=== PATIENT | male | born 1940 | race Caucasian/White ===

== ENCOUNTER 2020-03-18 12:33 | Emergency (ER) | payer OTHER ==
[2020-03-18 13:33] LABS: Absolute Lymphocytes (CBC) 0.6 K/uL (0.7-4.9); Basophils % 0.1 % (0-1.3); Hematocrit 46.8 % (39.6-49.0); Lymphocytes % 2.8 % (15.3-44.8); MPV 9.5 fL (7.6-11.3); RBC Red Blood Cell Count 5.12 M/uL (4.33-5.43)
[2020-03-18 13:37] LABS: Protime INR 1.35
--- NOTE | 2020-03-18 13:48 | RAD REPORT ---
EXAM DESCRIPTION: CT - Abdomen Pelvis Wo Contrast - 03/18/2020 1:29 pm CLINICAL HISTORY: ABD PAIN Shortness of breath COMPARISON: No comparisons TECHNIQUE: Axial [address] imaging of the abdomen and pelvis was performed without IV contrast. No IV contrast was given because of allergy, abnormal renal function, patient refusal or physician re quest. No oral contrast given. All CT scans are performed using dose optimization technique as appropriate and may include automated exposure control or mA/KV adjustment according to patient size. FINDINGS: A 7 millimeter nodule is present in the posterior gutter on the right. There is additional parenchymal stranding in this region. This may be part of scarring. Recommendation would be for foll ow-up in 6-12 months if no prior imaging is available. This follow-up regimen may be shortened if the patient has additional pulmonary nodules outside of today's [id number]. Follow-up chest outpatien t CT imaging could be performed as risk factors warrant. No pleural effusion. Cardiomegaly is present without pericardial effusion. Liver has a slightly nodular contour. No focal liver lesions seen on noncontrast imaging. Gallbladder is normal size. Respiratory motion degradation blurs of the garcia. Gallstones can be occult. Patient has a biliary stent in place. No pancreatic mass or peripancreatic stranding. No spleen abnormality identified. No left-sided hydronephrosis or mass. No obstructing or nonobstructing calculi. Left adrenal gland an d right adrenal gland are unremarkable. Right kidney is absent. Isodense renal masses and pyelonephr itis cannot be excluded in the absence of IV contrast. The urinary bladder is without significant fin ding. Fluid-filled stomach shows no wall thickening or mass. No acute large or small bowel finding. No susp icion for appendicitis. No free air, free fluid or inflammatory stranding. No mass or bulky lymphade nopathy. Patient has moderately large bilateral fat only inguinal hernias. Advanced disc and bone degenerative changes are present. No acute findings seen. IMPRESSION: No obstruction, free air or surgically emergent finding identified. No acute GI findings seen. Liver has a slightly nodular contour and hepatic parenchymal disease is not excluded. There are no fo yolanda liver lesions on noncontrast imaging. Absent right kidney. Cardiomegaly. A 7 millimeter pulmonary nodule posterior gutter on the right may be part of scarring but needs ongoi ng monitoring. Recommendation is 6-12 month follow-up outpatient CT study. This interval may need to be shortened if the patient has additional pulmonary nodules that fall outside of the field of view o f this examination. Full assessment is limited is the absence of IV contrast.
[2020-03-18 14:06] LABS: Albumin 2.9 g/dL (3.4-5.0); Bilirubin Direct 8.5 mg/dL (0-0.2); Magnesium 1.9 mg/dL (1.8-2.4); Potassium 4.8 mmol/L (3.5-5.1); Protein, Total 7.6 g/dL (6.4-8.2); Troponin (Emerg Dept Use Only) 0.18 ng/mL (0.0-0.045)
[2020-03-18 14:07] LABS: Bilirubin Total 9.9 mg/dL (0.2-1.0)
[2020-03-18] MEDS ORDERED: CEFTRIAXONE/SWI 1gm 1 GM/10 ML SYR ONE (14:33)
[2020-03-18] MEDS ORDERED: AZITHROMYCIN IV 500 MG in NA CHLORIDE 0.9% 250 ML IVPB ONE (15:00)
[2020-03-18 15:03] LABS: Blood Morphology Comment NOT SEEN (NOT SEEN); Platelet Estimate ADEQ; White Blood Cell Scan DIFF (OK)
--- NOTE | 2020-03-18 15:41 | RAD REPORT ---
EXAM DESCRIPTION: RAD - Chest Single View - 03/18/2020 3:21 pm CLINICAL HISTORY: COUGH, shortness of breath COMPARISON: None TECHNIQUE: AP portable chest image was obtained 03/18/2020 3:21 pm . FINDINGS: Lung volumes are low. Left suprahilar markings are mildly prominent. No dense consolidatio n seen. Cardiomegaly is present. Vasculature is mildly prominent. Sternotomy wires are in place. No m easurable pleural effusion and no pneumothorax. No acute bony abnormality seen. No acute aortic findi ngs suspected. IMPRESSION: Lung parenchymal assessment is significantly limited due to low lung volumes, cardiomega ly and body habitus. No significant failure or volume overload. Left suprahilar markings are mildly prominent. Pneumonia is doubtful but follow-up can be obtained if the patient remains symptomatic.
--- NOTE | 2020-03-18 15:51 | RAD REPORT ---
EXAM DESCRIPTION: US - Abdomen Exam Limited - 03/18/2020 2:56 pm CLINICAL HISTORY: ABD PAIN COMPARISON: Abdomen Pelvis Wo Contrast dated 03/18/2020 FINDINGS: Gallbladder is contracted which significantly limited visualization of the gallbladder lum en. The contracted state and body habitus affects also limited the ability to assess for any true gal lbladder wall thickening. No pericholecystic fluid seen. No common duct stone or biliary tree dilatation identified. IMPRESSION: Gallbladder was too contracted to allow all accurate assessment for stones or sludge. No biliary tree dilatation identifiable.
--- NOTE | 2020-03-18 16:14 | EDPHYS ---
Physician Documentation [facility] Name: Fernandez Keller Age: 79 yrs Sex: Male : 1940 Arrival Date: 03/18/2020 Time: 12:38 Bed 8 Private MD: ED Physician Woo Dennis HPI: 03/18 16:04 This 79 yrs old Unknown Male presents to ER via EMS with complaints of Breathing rn Difficulty. 16:04 The patient has shortness of breath at rest. rn 16:05 Onset: The symptoms/episode began/occurred last night. Duration: The symptoms are rn continuous. The patient's shortness of breath is aggravated by exertion, supine position. Severity of symptoms: At their worst the symptoms were moderate in the emergency department the symptoms are unchanged. The patient has not experienced similar symptoms in the past. Reports sob since last night, + 2 days of fever to 102, + dry cough. Reports chest pain and abd pain with nausea. No trauma. No COVID-19 contacts that he knows of. . Historical: - Allergies: 12:30 No Known Allergies; rb1 - Home Meds: 12:30 atorvastatin 20 mg oral tab 0.5 tab once daily [Active]; glipizide 5 mg Oral tab 1 tab rb1 once daily [Active]; hydrochlorothiazide lisinopril HCTZ 12.5/Lisinopril 20 mg 1 tab daily [Active]; hydralazine 10 mg Oral tab 1 tab 3 times a day [Active]; hydrocortisone 10 mg Oral tab 2 tabs morning [Active]; levothyroxine 75 mcg tab 1 tab once daily [Active]; metoprolol succinate 50 mg oral Tb24 1 tab once daily [Active]; sildenafil citrate 10 mg 0.5 tab Take before sexual intercourse [Active]; testosterone (bulk) miscellaneous [Active]; aspirin 81 mg Oral chew 1 tab once daily [Active]; multivitamin oral oral daily [Active]; - PMHx: 12:30 High Cholesterol; Hypertension; Diabetes - NIDDM; Hypothyroidism; Melanoma; rb1 - PSHx: 12:30 Bypass x 2; Knee replacement; Appendectomy; Nephrectomy; rb1 - Immunization history:: Adult Immunizations up to date. - Social history:: Smoking status: Patient/guardian denies using. - Family history:: not pertinent. - Hospitalizations: : No recent hospitalization is reported. ROS: 16:05 Constitutional: + fever Eyes: Negative for injury, pain, redness, and discharge, ENT: rn Negative for injury, pain, and discharge, Cardiovascular: Negative for chest pain, palpitations, and edema, Respiratory: Negative for wheezing, and pleuritic chest pain, Abdomen/GI: + abd pain and nausea MS/Extremity: Negative for injury and deformity, Skin: Negative for injury, rash, and discoloration, Neuro: Negative for headache, numbness, tingling, and seizure. Exam: 16:05 Constitutional: Overweight male, tachypneic, with shallow breathing Head/Face: rn Normocephalic, atraumatic. ENT: No stridor Cardiovascular: Regular rate and rhythm. No pulse deficits. Respiratory: + moderate tachypnea, diminished at bases Abdomen/GI: soft, non-tender Skin: Warm, dry MS/ Extremity: Pulses equal, no cyanosis. Neurovascular intact. Full, normal range of motion. Equal circumference. Neuro: Awake and alert, GCS 15 Vital Signs: 12:30 BP 126 / 59; Pulse 102; Resp 19; Temp 98.3(O); Pulse Ox 97% on 2 lpm NC; Weight 127.01 rb1 kg (R); Height 5 ft. 10 in. (177.80 cm) (R); Pain 8/10; 13:48 BP 115 / 58; Pulse 101; Resp 22 S; Pulse Ox 99% on 2 lpm NC; jl7 14:37 BP 116 / 82; Pulse 92; Resp 30; Pulse Ox 97% on 2 lpm NC; rb1 15:15 BP 122 / 110; Pulse 94; Resp 27; Pulse Ox 98% ; rb1 17:48 BP 119 / 55; Pulse 84; Resp 29; Pulse Ox 96% ; rb1 18:42 BP 111 / 94; Pulse 85; Resp 27; Pulse Ox 100% ; rb1 19:30 BP 109 / 91; Pulse 85; Resp 17; Pulse Ox 100% on R/A; rv 20:00 BP 92 / 78; Pulse 80; Resp 18; Pulse Ox 96% on 2 lpm NC; rv 20:30 BP 150 / 83; Pulse 87; Resp 17; Pulse Ox 96% on 2 lpm NC; rv 21:15 BP 106 / 50; Pulse 91; Resp 19; Pulse Ox 97% 2 lpm ; rv 22:30 BP 103 / 48; Pulse 84; Resp 27; Pulse Ox 95% on R/A; rv 22:45 BP 96 / 44; Pulse 83; Resp 20; Pulse Ox 100% on 30% BiPAP; rv 03/19 00:20 BP 101 / 44; Pulse 88; Resp 19; Pulse Ox 99% ; ea 00:40 BP 118 / 53; Pulse 86; Resp 17; Temp 98; Pulse Ox 97% on 2 lpm NC; rv 03/18 12:30 Body Mass Index 40.18 (127.01 kg, 177.80 cm) rb1 MDM: 03/18 12:41 Patient medically screened. rn 16:10 Differential diagnosis: CHF exacerbation, Myocardial Infarction pneumonia, Pneumothorax rn pulmonary edema, Pulmonary Embolism Sepsis. Data reviewed: vital signs, nurses notes, lab test result(s), EKG, radiologic studies, CT scan, plain films, ultrasound, and as a result, I will admit patient. Counseling: I had a detailed discussion with the patient and/or guardian regarding: the historical points, exam findings, and any diagnostic results supporting the discharge/admit diagnosis, lab results, radiology results, the need for further work-up and treatment in the hospital. Response to treatment: the patient's symptoms have mildly improved after treatment, and as a result, I will admit patient. Admission orders: after a detailed discussion of the patient's condition and case, the admit orders are written by me. 17:40 ED course: Dr. Torres consulted on patient, spoke with Dr. Montgomery, who requests overnight stocker for elevated LFTs, possible need for ERCP and endoscopic u/s, along with chance of cholangitis. Will call [facility] to initiate transfer. . 18:12 ED course: Consulted with Dr. Can, GI at [facility], agrees and will consult on rn patient when transferred. Pt improved, RR improving, on 2 L O2, sitting upright and states feels better. Stable BP. Abx administered. Awaiting callback from [facility] hospitalist service. . 03/18 12:48 Order name: Blood Culture Adult (2) rn 03/18 12:48 Order name: BMP rn 03/18 12:48 Order name: CBC with Diff rn 03/18 12:48 Order name: D-Dimer rn 03/18 12:48 Order name: Hepatic Function; Complete Time: 14: rn 03/18 12:48 Order name: Lipase; Complete Time: 14: rn 03/18 12:48 Order name: Magnesium; Complete Time: 14: rn 03/18 12:48 Order name: NT PRO-BNP; Complete Time: 14: rn 03/18 12:48 Order name: PT-INR; Complete Time: 13:56 rn 03/18 12:48 Order name: Ptt, Activated; Complete Time: 13:56 rn 03/18 12:48 Order name: Troponin (emerg Dept Use Only); Complete Time: 14: rn 03/18 12:48 Order name: Procalcitonin; Complete Time: 14: rn 03/18 12:48 Order name: Lactate; Complete Time: 14: rn 03/18 12:49 Order name: Blood Culture EDOK 03/18 12:49 Order name: Basic Metabolic Panel; Complete Time: 14: EDOK 03/18 12:49 Order name: CBC with Automated Diff; Complete Time: 15:15 EDOK 03/18 12:49 Order name: D-Dimer; Complete Time: 13:56 EDOK 03/18 13:32 Order name: CREATININE WHOLE BLOOD; Complete Time: 13:56 EDOK 03/18 13:44 Order name: CBC Smear Scan; Complete Time: 15:15 EDOK 03/18 15:03 Order name: Manual Differential; Complete Time: 15:15 EDOK 03/18 16:47 Order name: ABG Arterial Blood Gas; Complete Time: 17:38 EDOK 03/18 17:42 Order name: Lactate Sepsis 2 HR Follow-up; Complete Time: 17:56 EDOK 03/18 17:46 Order name: SARS-COV-2 RT PCR; Complete Time: 23:57 EDMS 03/18 21:08 Order name: Glucose, Ancillary Testing; Complete Time: 23:57 EDMS 03/18 22:45 Order name: Troponin (emerg Dept Use Only); Complete Time: 23:57 sg 03/18 22:49 Order name: Glucose, Ancillary Testing; Complete Time: 23:57 EDMS 03/18 12:48 Order name: EKG; Complete Time: 12:49 rn 03/18 12:48 Order name: Cardiac monitoring; Complete Time: 13:26 rn 03/18 12:48 Order name: EKG - Nurse/Tech; Complete Time: 14:19 rn 03/18 12:48 Order name: IV Saline Lock; Complete Time: 13:25 rn 03/18 12:48 Order name: Labs collected and sent; Complete Time: 13:25 rn 03/18 12:48 Order name: O2 Per Protocol; Complete Time: 13:25 rn 03/18 12:48 Order name: O2 Sat Monitoring; Complete Time: 13:25 rn 03/18 13:21 Order name: Abdomen ; Complete Time: 13:56 EDMS 03/18 14:14 Order name: Chest Single View; Complete Time: 15:55 EDMS 03/18 14:17 Order name: US Abdomen Limited; Complete Time: 15:55 rn 03/18 16:09 Order name: BIPAP rn Administered Medications: 14:50 Drug: Rocephin 1 grams Route: IV; Rate: calculated rate; Site: right forearm; rb1 15:05 Follow up: Response: No adverse reaction rb1 15:05 Follow up: Response: No adverse reaction rb1 15:05 Follow up: Response: No adverse reaction rb1 20:13 Follow up: Response: No adverse reaction; IV Status: Completed infusion rv 14:50 Drug: Zithromax 500 mg Route: IVPB; Infused Over: 1 hrs; Site: right forearm; rb1 15:05 Follow up: Response: No adverse reaction rb1 20:12 Follow up: Response: No adverse reaction; IV Status: Completed infusion rv 18:07 Drug: NS 0.9% 500 ml Route: IV; Rate: bolus; Site: right forearm; rb1 19:26 Follow up: IV Status: Completed infusion; IV Intake: 500ml rv Disposition: 03/18/20 18:36 Transfer ordered to [facility]. Diagnosis are Abnormal results of liver function studies, Pneumonia, unspecified organism, Dyspnea, unspecified, Acute kidney failure. - Reason for transfer: Higher level of care. - Accepting physician is DrKanchan. - Condition is Stable. - Problem is new. - Symptoms have improved. Signatures: Dispatcher [employer] EDMarcos Marie RN RN Kan Mcdonough PA PA jmm Nieto, Roman, MD MD rn Barber, Rebecca RN RN rb1 Ayaan Gaffney RN RN rv Corrections: (The following items were deleted from the chart) 13:21 12:49 Abdomen Pelvis W Con+CT.RAD.BRZ ordered. [facility] 14:13 12:48 Chest Single View+RAD.RAD.BRZ ordered. [facility] 17:46 12:49 CORONAVIRUS+MR.LAB.BRZ ordered. [facility] 18:35 16:12 Hospitalization Ordered by Demetrice Torres MD for Inpatient Admission. Preliminary rn diagnosis is Dyspnea, unspecified; Acute kidney failure; Abnormal results of liver function studies; Pneumonia, unspecified organism. Bed requested for Telemetry/MedSurg (Inpatient). Status is Inpatient Admission. Condition is Stable. Problem is new. Symptoms have improved. rn 23:11 23:06 Blood Transfusion Consent ordered. sg ea 23:13 23:06 PACKED RBC LEUKORED -1+BB.LAB.BRZ ordered. [facility] 23:13 23:07 ABO/RH typing ordered. [facility] 23:13 23:07 Antibody Screen ordered. [facility] 03/19 00:59 03/18 18:36 03/18/2020 18:36 Transfer ordered to [facility]. rv Diagnosis is Abnormal results of liver function studies; Pneumonia, unspecified organism; Dyspnea, unspecified; Acute kidney failure. Reason for transfer: Higher level of care. Accepting physician is . Condition is Stable. Problem is new. Symptoms have improved. rn
--- NOTE | 2020-03-18 16:14 | ER ---
Nurse's Notes [facility] Name: Fernandez Keller Age: 79 yrs Sex: Male : 1940 Arrival Date: 03/18/2020 Time: 12:38 Bed 8 Private MD: Diagnosis: Abnormal results of liver function studies;Pneumonia, unspecified organism;Dyspnea, unspecified;Acute kidney failure Presentation: 03/18 12:30 Chief complaint: EMS states: Pt. C/o of difficulty breathing. When EMS arrived the pt. rb1 was 92% RA, administered 2 L NC 97%. Also c/o abdominal pain that started last night. Was diaphoretic when EMS arrived. BP 120/80, P 110, T 98.2, BS 116. Denies being around anyone that has been sick. 12:30 Coronavirus screen: Client denies travel out of the [place] in the last 14 days. Ebola rb1 Screen: Patient denies travel to an Ebola-affected area in the 21 days before illness onset. Initial Sepsis Screen: Does the patient meet any 2 criteria? No. Patient's initial sepsis screen is negative. Risk Assessment: Do you want to hurt yourself or someone else? Patient reports no desire to harm self or others. Onset of symptoms was March 17, 2020. 12:30 Method Of Arrival: EMS: [facility] rb1 12:30 Acuity: [place] 3 rb1 03/19 00:59 Initial Sepsis Screen: Does the patient have a suspected source of infection? Yes: rv Acute abdominal pain. Triage Assessment: 03/18 12:30 General: Appears in no apparent distress. comfortable, Behavior is calm, cooperative. rb1 Pain: Complains of pain in abdomen Pain currently is 8 out of 10 on a pain scale. Pain began 1 day ago. Neuro: Level of Consciousness is awake, alert, obeys commands, Oriented to person, place, time, situation. Cardiovascular: Capillary refill < 3 seconds Patient's skin is warm and dry. Respiratory: Reports shortness of breath on exertion Airway is patent Respiratory effort is even, unlabored, Respiratory pattern is regular, symmetrical, Onset: The symptoms/episode began/occurred yesterday, the patient has mild shortness of breath Denies cough. GI: Reports diarrhea, nausea. : No signs and/or symptoms were reported regarding the genitourinary system. Historical: - Allergies: 12:30 No Known Allergies; rb1 - Home Meds: 12:30 atorvastatin 20 mg oral tab 0.5 tab once daily [Active]; glipizide 5 mg Oral tab 1 tab rb1 once daily [Active]; hydrochlorothiazide lisinopril HCTZ 12.5/Lisinopril 20 mg 1 tab daily [Active]; hydralazine 10 mg Oral tab 1 tab 3 times a day [Active]; hydrocortisone 10 mg Oral tab 2 tabs morning [Active]; levothyroxine 75 mcg tab 1 tab once daily [Active]; metoprolol succinate 50 mg oral Tb24 1 tab once daily [Active]; sildenafil citrate 10 mg 0.5 tab Take before sexual intercourse [Active]; testosterone (bulk) miscellaneous [Active]; aspirin 81 mg Oral chew 1 tab once daily [Active]; multivitamin oral oral daily [Active]; - PMHx: 12:30 High Cholesterol; Hypertension; Diabetes - NIDDM; Hypothyroidism; Melanoma; rb1 - PSHx: 12:30 Bypass x 2; Knee replacement; Appendectomy; Nephrectomy; rb1 - Immunization history:: Adult Immunizations up to date. - Social history:: Smoking status: Patient/guardian denies using. - Family history:: not pertinent. - Hospitalizations: : No recent hospitalization is reported. Screenin:30 Abuse screen: Denies threats or abuse. Nutritional screening: No deficits noted. rb1 Tuberculosis screening: No symptoms or risk factors identified. Fall Risk None identified. Assessment: 12:30 General: See triage assessment. rb1 13:29 Reassessment: Pt. in radiology. rb1 13:48 Reassessment: Patient appears in no apparent distress at this time. decreased pain 10.rb1 14:39 Reassessment: Patient appears in no apparent distress at this time. Patient and/or rb1 family updated on plan of care and expected duration. Pain level reassessed. Patient is alert, oriented x 3, equal unlabored respirations, skin warm/dry/pink. Lab is at the bedside to collect the second set of blood cultures. 15:35 Reassessment: Patient appears in no apparent distress at this time. No changes from rb1 previously documented assessment. 16:30 Reassessment: Patient appears in no apparent distress at this time. Patient and/or rb1 family updated on plan of care and expected duration. Pain level reassessed. Patient is alert, oriented x 3, equal unlabored respirations, skin warm/dry/pink. Pt.. is refusing to wear the BiPap. 16:55 Reassessment: Spoke to Nancy, the pt and updated her on the POC and results with rb1 the pt. permission. 17:42 Reassessment: transfer initiated to [facility], spoke with TRAE James. iw 17:51 Reassessment: Patient appears in no apparent distress at this time. Patient and/or rb1 family updated on plan of care and expected duration. Pain level reassessed. Patient is alert, oriented x 3, equal unlabored respirations, skin warm/dry/pink. 18:00 Reassessment: Lab found the COVID swab that was sent when the pt. arrived in the ED. rb1 20:10 Reassessment: PATIENT IS AOX4. SITTING UP ON THE BED. DENIES ANY PAIN AT THIS TIME. rv UPDATED ON THE PROCESS OF TRANSFER. EXPLAINED THAT HE IS ON NPO. Cardiovascular: Rhythm is. Respiratory: Airway is patent Respiratory effort is even, unlabored, Breath sounds are clear bilaterally. 22:30 Reassessment: PATIENT FOUND SITTING ON THE CHAIR, LABORED BREATHING AND DIAPHORETIC. rv PLACED BACK ON THE BED, VITAL SIGNS AND BLOOD SUGAR CHECKED. REFERRED TO DR ZAVALA, RECEIVED NEW ORDERS. EKG DONE AND REPEAT TROPONIN. PATIENT IS ON BIPAP AT 30% FIO2. 22:58 Reassessment: PT REFUSED BIPAP. REPLACED WITH NASAL CANNULA AT 2LPM. rv 03/19 00:18 Reassessment: Report called to Georgina LARKIN at [facility]. ea Vital Signs: 03/18 12:30 BP 126 / 59; Pulse 102; Resp 19; Temp 98.3(O); Pulse Ox 97% on 2 lpm NC; Weight 127.01 rb1 kg (R); Height 5 ft. 10 in. (177.80 cm) (R); Pain 8/10; 13:48 BP 115 / 58; Pulse 101; Resp 22 S; Pulse Ox 99% on 2 lpm NC; jl7 14:37 BP 116 / 82; Pulse 92; Resp 30; Pulse Ox 97% on 2 lpm NC; rb1 15:15 BP 122 / 110; Pulse 94; Resp 27; Pulse Ox 98% ; rb1 17:48 BP 119 / 55; Pulse 84; Resp 29; Pulse Ox 96% ; rb1 18:42 BP 111 / 94; Pulse 85; Resp 27; Pulse Ox 100% ; rb1 19:30 BP 109 / 91; Pulse 85; Resp 17; Pulse Ox 100% on R/A; rv 20:00 BP 92 / 78; Pulse 80; Resp 18; Pulse Ox 96% on 2 lpm NC; rv 20:30 BP 150 / 83; Pulse 87; Resp 17; Pulse Ox 96% on 2 lpm NC; rv 21:15 BP 106 / 50; Pulse 91; Resp 19; Pulse Ox 97% 2 lpm ; rv 22:30 BP 103 / 48; Pulse 84; Resp 27; Pulse Ox 95% on R/A; rv 22:45 BP 96 / 44; Pulse 83; Resp 20; Pulse Ox 100% on 30% BiPAP; rv 03/19 00:20 BP 101 / 44; Pulse 88; Resp 19; Pulse Ox 99% ; ea 00:40 BP 118 / 53; Pulse 86; Resp 17; Temp 98; Pulse Ox 97% on 2 lpm NC; rv 03/18 12:30 Body Mass Index 40.18 (127.01 kg, 177.80 cm) rb1 ED Course: 03/18 12:30 Arm band placed on right wrist. rb1 12:30 Patient has correct armband on for positive identification. Placed in gown. Bed in low rb1 position. Call light in reach. Side rails up X 1. Pulse ox on. NIBP on. Warm blanket given. 12:38 Patient arrived in ED. rb1 12:41 Woo Dennis MD is Attending Physician. rn 12:45 Triage completed. rb1 13:00 Mesha Garza, RN is Primary Nurse. rb1 13:24 Initial lab(s) drawn, by me, sent to lab. COVID-19 swab sent to lab. Inserted saline jl7 lock: 20 gauge in right forearm, using aseptic technique. Blood collected. 13:29 Abdomen In Process Unspecified. EDMS 14:56 US Abdomen Limited In Process Unspecified. EDMS 15:21 Chest Single View In Process Unspecified. EDMS 16:12 Demetrice Torres MD is Hospitalizing Provider. rn 16:55 Repeat lab(s) drawn. by me, sent to lab. dh3 18:40 SARS-COV-2 RT PCR Sent. rb1 18:54 Erika from [facility] call to ask for a 30 min extension on transfer. bd 21:21 Followed up with [facility]. Spoke with Carmenza. Still waiting on a bed. Carmenza tt3 stated she would check with her melt house centrifugal operator to see where they stand and will call back once they get a bed. 21:30 Carmenza Suggs, Grants Officer, gave admin approval. Adeline Stewart accepted at tt3 [id number]. The pt is going to room 2261. Report to be called to . Face sheet to be faxed to [phone]. 23:51 Notified ED physician of a critical lab result(s). troponin 0.58 reported to , sg pt continues to await transport at receiving facility at this time. 03/19 00:58 No provider procedures requiring assistance completed. IV is patent, with fluids rv infusing freely, with good blood return, Patient transferred, IV remains in place. Administered Medications: 03/18 14:50 Drug: Rocephin 1 grams Route: IV; Rate: calculated rate; Site: right forearm; rb1 15:05 Follow up: Response: No adverse reaction rb1 15:05 Follow up: Response: No adverse reaction rb1 15:05 Follow up: Response: No adverse reaction rb1 20:13 Follow up: Response: No adverse reaction; IV Status: Completed infusion rv 14:50 Drug: Zithromax 500 mg Route: IVPB; Infused Over: 1 hrs; Site: right forearm; rb1 15:05 Follow up: Response: No adverse reaction rb1 20:12 Follow up: Response: No adverse reaction; IV Status: Completed infusion rv 18:07 Drug: NS 0.9% 500 ml Route: IV; Rate: bolus; Site: right forearm; rb1 19:26 Follow up: IV Status: Completed infusion; IV Intake: 500ml rv Intake: 19:26 IV: 500ml; Total: 500ml. rv Outcome: 16:12 Decision to Hospitalize by Provider. rn 18:36 ER care complete, transfer ordered by . rn 03/19 00:58 Transferred by ground EMS to [facility], Transfer form completed. rv X-rays sent w/ patient. Condition: stable Discharge instructions given to patient, Instructed on the need for transfer. 00:59 Patient left the ED. rv Signatures: Dispatcher [employer] EDMS Dee Dee Reed Steven, RN Beth Juarez RN Woo Tellez MD MD rn Barber, Mesha, RN RN rb1 Celso Richard RN RN jl7 Ganesh, Iwona dh3 Nimisha Ricardo RN Ayaan Wu ea, RN RN rv Kwasi, [place] tt3 Corrections: (The following items were deleted from the chart) 03/18 22:54 22:49 Reassessment: PATIENT FOUND SITTING ON THE CHAIR, LABORED BREATHING AND rv DIAPHORETIC. PLACED BACK ON THE BED, VITAL SIGNS AND BLOOD SUGAR CHECKED. REFERRED TO DR ZAVALA, RECEIVED NEW ORDERS. EKG DONE AND REPEAT TROPONIN. PATIENT IS ON BIPAP AT 30% FIO2. rv
[2020-03-18 17:14] LABS: Blood O2 Saturation 98.2 % (92-98.5)
[2020-03-18 17:15] LABS: Arterial Blood Carboxyhemoglob 0.9 % (0-1.5); Blood Gas Oxyhemoglobin 96.4 % (94-97)
--- NOTE | 2020-03-18 17:54 | P.CNS ---
Date of Consult: 03/18/20 Reason for Consult: DALTON/ALI Requesting Physician: Woo Dennis Primary Care Provider: DINO Chief Complaint: Fever, dyspnea, abdominal pain and swelling History of Present Illness: Patient is an 79yo who came to the ER with fever and abdominal pain along with dyspnea. Patient has a history of malignant melanoma and renal cell carinoma s/p nephrectomy. - Past Medical/Surgical History -: Renal cell Ca -: Malignant melanoma -: Melanoma excision - Family History Father Family History: Reviewed- Non-Contributory - Social History Smoking Status: Never smoker Alcohol use: No CD- Drugs: No Review of Systems 10-point ROS is otherwise unremarkable Physical Examination reviewed General: Alert, In no apparent distress, Oriented x3 HEENT: Atraumatic, Normocephalic, PERRLA, Scleral icterus Neck: Supple, 2+ carotid pulse no bruit, JVD not distended, No Thyromegaly Respiratory: Diminished, Crackles/rales Cardiovascular: Regular rate/rhythm, Normal S1 S2, Systolic murmur Gastrointestinal: Normal bowel sounds, Soft and benign, No guarding, Distended, Tenderness (RUQ), Rebound Musculoskeletal: No clubbing, No swelling Integumentary: No rashes Neurological: Normal gait, Normal strength at 5/5 x4 extr, Normal tone, Sensation intact, Cranial nerves 3-12 intact Laboratory Data (last 24 hrs) 03/18/20 13:20: PT 15.8 H, INR 1.35, APTT 37.2 H 03/18/20 13:20: WBC 20.0 H, Hgb 15.5, Hct 46.8, Plt Count 200 03/18/20 13:20: Sodium 130 L, Potassium 4.8, BUN 53 H, Creatinine 3.63 H, Glucose 143 H, Magnesium 1.9, Total Bilirubin 9.9 H*, AST 144 H, ALT 237 H, Alkaline Phosphatase 445 H, Lipase 236 - Problems (1) DALTON (acute kidney injury) Current Visit: Yes Status: Acute (2) Acute liver failure Current Visit: Yes Status: Acute (3) Acute cholangitis Current Visit: Yes Status: Acute (4) Fever Current Visit: Yes Status: Acute Conclusions/ Impression: Spoke to GI and they are recommending transfer to tertiary care facility Critical Care: Yes Time Spent Managing Pts care (In Minutes): 40
[2020-03-18] MEDS ORDERED: NA CHLORIDE 0.9% 500 ML ONE (18:11)
[2020-03-19 03:00] VITALS: BP 118/53; TEMP 98; O2SAT 97
--- NOTE | 2020-03-19 11:20 | EKG ---
Test Date: 2020-03-18 Test Time: 22:37:17 [facility] [employer]: RV MEASUREMENT RESULTS: Intervals: Rate: 82 FL: 214 QRSD: 106 QT: 366 QTc: 427 [place]: P: FL: 214 QRS: -31 T: 161 INTERPRETIVE STATEMENTS: Sinus rhythm with 1st degree AV block Left axis deviation Inferior infarct, age undetermined Cannot rule out Anterior infarct, age undetermined ST & T wave abnormality, consider lateral ischemia Abnormal ECG Compared to ECG 05/01/2005 08:50:00 First degree AV block now present Left-axis deviation now present ST (T wave) deviation now present Possible ischemia now present Sinus bradycardia no longer present Myocardial infarct finding still present Electronically Signed On 03-19-20 11:20:08 CDT by Michael Garnett
--- NOTE | 2020-03-19 11:23 | EKG ---
Test Date: 2020-03-18 Test Time: 14:02:43 Animal Sticker: ISMAEL MEASUREMENT RESULTS: Intervals: Rate: 95 CA: 196 QRSD: 108 QT: 332 QTc: 417 [place]: P: CA: 196 QRS: -57 T: -39 INTERPRETIVE STATEMENTS: Normal sinus rhythm Left axis deviation Cannot rule out Inferior infarct, age undetermined T wave abnormality, consider lateral ischemia Abnormal ECG Compared to ECG 05/01/2005 08:50:00 Left-axis deviation now present T-wave abnormality now present Possible ischemia now present Sinus bradycardia no longer present Myocardial infarct finding still present Electronically Signed On 03-19-20 11:20:29 CDT by Michael Garnett
== END 2020-03-19 00:59 | disposition short-term general hospital (02) ==
LOC: ER 12:33
DX: J18.9 Pneumonia, unspecified organism (principal); Z20.828 Contact with and (suspected) exposure to other viral communicable diseases; R94.5 Abnormal results of liver function studies; N17.9 Acute kidney failure, unspecified; I10 Essential (primary) hypertension; E11.9 Type 2 diabetes mellitus without complications; E78.00 Pure hypercholesterolemia, unspecified; Z79.82 Long term (current) use of aspirin
CPT/HCPCS: 96365; 96368; 93005 ×2; 87040 ×2; 85025; 80048; 36415; 83735; 87205 ×3; 85610; 82565; 82947 ×2; 85379; 80076; 83605 ×2; 85730; 87077 ×2; 87186 ×2; 84484 ×2; 83690; 84145; 83880; 74176; 71045; 76705; 82805; 94660 ×2; 99285; 96366; U0003; J0456; J0696; J7050; J7040

== ENCOUNTER 2024-05-13 18:14 | Emergency (ER) | payer OTHER ==
[2024-05-13] MEDS ORDERED: NA CHLORIDE 0.9% 2,000 ML ONE (18:35)
[2024-05-13 19:17] LABS: Absolute Lymphocytes (CBC) 0.6 K/uL (0.7-4.9); Absolute Monocytes 0.4 K/uL (0.1-1.3); Absolute Neutrophil 12.3 K/uL (1.8-8.0); Basophils % 0.4 % (0-1.3); Eosinophils % 0.1 % (0-4.4); Hematocrit 27.6 % (39.6-49.0); Hemoglobin 8.5 g/dL (13.6-17.9); Lymphocytes % 4.3 % (15.3-44.8); MCH 25.4 pg (27.0-35.0); MCHC 30.9 g/dL (32.0-36.0); MCV 82.2 fL (80-100); MPV 9.3 fL (7.6-11.3); Monocytes % 3.3 % (3.3-12.3); Neutrophils % 91.9 % (41.7-73.7); Platelets 127 thou/uL (152-406); RBC Red Blood Cell Count 3.36 M/uL (4.33-5.43); Red Cell Distribution Width 22.2 % (12.1-15.2)
[2024-05-13 19:21] LABS: PT Prothrombin Time 25.7 SECONDS (9.4-12.5); PTT, Activated Partial Thromb 34.1 SECONDS (24.3-36.9); Protime INR 2.35
[2024-05-13 19:35] LABS: Albumin 2.4 g/dL (3.4-5.0); Albumin/Globulin Ratio 0.7 (1.1-1.8); Anion Gap 13.8 mEq/L (5.0-15.0); Bilirubin Total 4.7 mg/dL (0.2-1.0); Globulin 3.3 g/dL (2.3-3.5); Potassium 3.8 mEq/L (3.5-5.1); Protein, Total 5.7 g/dL (6.4-8.2)
[2024-05-13 20:01] LABS: Troponin High Sensitivity 66.2 pg/mL (<58.9)
[2024-05-13 20:02] LABS: SARS-CoV-2 Antigen CONTROL BLUE LINE VIS/BG OK; SARS-CoV-2 Antigen Rapid Res Negative (Negative)
[2024-05-13] MEDS ORDERED: METHYLPREDNISOLONE 40 MG INJ ONE (20:11)
[2024-05-13 20:33] LABS: Specific Gravity 1.017 (1.005-1.030); Sqamous Epithelial <5 /HPF (None Seen); Urine Bacteria <20 /HPF (<20); Urine Bilirubin 1+ (Negative); Urine Blood 2+ (Negative); Urine Clarity Extremely Turbid (Clear); Urine Color Dark-Yellow (Yellow); Urine Culture Reflex Order REFLEXED; Urine Glucose NEGATIVE (Negative); Urine Ketones NEGATIVE (Negative); Urine Microscopic Reflex YN ORDER UMIC; Urine Mucus Slight /HPF (None Seen); Urine Nitrite NEGATIVE (Negative); Urine Protein 1+ (Negative); Urine RBC 21-50 /HPF (None Seen); Urine Urobilinogen 2+ (Normal); Urine WBC >50 /HPF (<5); Urine WBC Clump Moderate /HPF (None Seen); Urine pH 5.5 (5.0-7.0)
[2024-05-13 20:38] LABS: Platelet Estimate DECR; White Blood Cell Scan OK (OK)
[2024-05-13 20:39] LABS: Anisocytosis 2+; Blood Morphology Comment NOTED (NOT SEEN)
[2024-05-13] MEDS ORDERED: VANCOMYCIN 1 GM/VIAL ONE (20:52)
[2024-05-13] MEDS ORDERED: CEFEPIME 1 GM/VIAL ONE (20:53)
[2024-05-13] MEDS ORDERED: ALBUMIN HUMAN 25% 100 ML IV ONE (20:53)
[2024-05-13] MEDS ORDERED: NA CHLORIDE 0.9% 500 ML ONE (20:54)
[2024-05-13] MEDS ORDERED: NA CHLORIDE 0.9% 1,000 ML ONE (20:54)
[2024-05-13] MEDS ORDERED: NA CHLORIDE 0.9% 100 ML ONE (20:54)
--- NOTE | 2024-05-13 21:02 | RAD REPORT ---
EXAM: CT CHEST, ABDOMEN AND PELVIS WITHOUT CONTRAST CLINICAL INDICATION: sepsis TECHNIQUE: CT chest, abdomen and pelvis was performed without contrast, as per department protocol. A xial, sagittal and coronal reconstructions were obtained. One or more of the following dose reduction techniques were used: Automated exposure control, adjustment of the mA and/or kV according to patient size, and/or iterative reconstruction. Unless otherwise specified, incidental findings do not require dedicated imaging follow-up. Examination is limited by the lack of intravenous contrast material. COMPARISON: No prior exam. FINDINGS: LUNGS: Mild linear subsegmental atelectasis is seen in both posterior lung bases. Cardiac size is pro minent with pacer device present. PLEURA: No pleural effusion. No pneumothorax. MEDIASTINUM AND LYMPH NODES: No mediastinal mass or fluid collection. Normal size mediastinal, hilar, and axillary lymph nodes. OSSEOUS STRUCTURES AND CHEST WALL: Intact. LIVER: Normal in size and contour. No focal lesion or biliary dilatation. Contracted PANCREAS: No mass, ductal dilation, or мария-pancreatic fluid. SPLEEN: Normal size. No focal lesion. ADRENALS: Normal; no mass. KIDNEYS: Normal size and contour. No hydronephrosis. URINARY BLADDER: Normal contour. GASTROINTESTINAL TRACT: Nonspecific inflammatory changes are seen in the fat in the right upper quadr ant adjacent to small bowel and large bowel loops. This is presumably related to right hemicolectomy. APPENDIX: Absent LYMPH NODES: No lymphadenopathy. MUSCULOSKELETAL: Moderate lower lumbar degenerative changes. OTHER: IMPRESSION: Mild nonspecific inflammatory changes in the right upper quadrant fat presumably related to right hem icolectomy. Correlation with surgical history is suggested. Elsewhere, no acute process identified.
--- NOTE | 2024-05-13 22:14 | RAD REPORT ---
EXAMINATION: ONE VIEW CHEST XR CLINICAL INDICATION: after central line placement TECHNIQUE: Frontal chest projection is submitted. Examination is limited by patient positioning and t echnique. COMPARISON: No prior exam. FINDINGS: Mild interstitial pulmonary edema. The heart is moderately enlarged in size. 2-lead pacer device pres ent. Sternotomy wires. Right-sided venous catheter is in place with tip in the SVC. No pneumothorax. IMPRESSION: No postprocedural pneumothorax seen.
[2024-05-14] MEDS ORDERED: NA CHLORIDE 0.9% 250 ML ONE (00:09)
--- NOTE | 2024-05-14 00:09 | ER ---
Nurse's Notes [facility] Name: Fernandez Keller Age: 83 yrs Sex: Male : 1940 Arrival Date: 05/13/2024 Time: 18:14 Bed 2 Private MD: Diagnosis: Severe sepsis with septic shock;Symptomatic anemia, acute on chronic renal failure, acute delirium multifactorial, acute metabolic encephalopathy Presentation: 05/13 18:22 Chief complaint: EMS states: called EMS for help getting pt off of the toilet, ph reports that he was sitting there for approx 2 hours, EMS found pt to be altered, normal A\T\O x 4, states that last known well was approx noon today, BP 111/66, HR 70-80s, BGL 106. Coronavirus screen: Vaccine status: Patient reports receiving the 2nd dose of the covid vaccine. Ebola Screen: No symptoms or risks identified at this time. Initial Sepsis Screen: Does the patient meet any 2 criteria? No. Patient's initial sepsis screen is negative. Does the patient have a suspected source of infection? No. Patient's initial sepsis screen is negative. Risk Assessment: Do you want to hurt yourself or someone else? Patient reports no desire to harm self or others. Onset of symptoms was May 13, 2024. 18:22 Method Of Arrival: EMS: [facility] 18:22 Acuity: [place] 2 ph Triage Assessment: 18:26 General: Appears in no apparent distress. Behavior is cooperative, drowsy, quiet. Pain: ph Unable to use pain scale. Patient is disoriented. Neuro: Level of Consciousness is awake, lethargic, listless, Oriented to person. Cardiovascular: Capillary refill < 3 seconds in bilateral fingers Patient's skin is warm and dry. Respiratory: Airway is patent Respiratory effort is even, unlabored. GI: Abdomen is round surgical site(s) noted to mid and R side of abdomen. Derm: Skin is pale. Musculoskeletal: Range of motion: intact in all extremities. Historical: - Allergies: 19:57 Amoxicillin; bm8 - Home Meds: 19:57 aspirin 81 mg Oral chew 1 tab once daily [Active]; atorvastatin 20 mg Oral tab 0.5 tab bm8 once daily [Active]; glipizide 5 mg Oral tab 1 tab once daily [Active]; hydralazine 10 mg Oral tab 1 tab 3 TIMES A DAY [Active]; hydrochlorothiazide lisinopril HCTZ 12.5/Lisinopril 20 mg 1 tab daily [Active]; hydrocortisone 10 mg Oral tab 2 tabs morning [Active]; levothyroxine 75 mcg tab 1 tab once daily [Active]; metoprolol succinate 50 mg Oral Tb24 1 tab once daily [Active]; multivitamin Oral daily [Active]; sildenafil citrate 10 mg 0.5 tab Take before sexual intercourse [Active]; testosterone (bulk) miscellaneous [Active]; - PMHx: 19:57 Diabetes - NIDDM; High Cholesterol; Hypertension; Hypothyroidism; melanoma; bm8 - PSHx: 19:57 Unable to Obtain; bm8 - Immunization history:: Adult Immunizations unknown. - Infectious Disease History:: Denies. - Social history:: Smoking status: unknown. Screenin:25 [facility] ED Fall Risk Assessment (Adult) History of falling in the last 3 months, ph including since admission No falls in past 3 months (0 pts) Confusion or Disorientation Yes (5 pts) Intoxicated or Sedated No (0 pts) Impaired Gait Yes (1 pt) Mobility Assist Device Used Yes (1 pt) Altered Elimination No (0 pt) Score/Fall Risk Level 3 or more points = High Risk Oriented to surroundings, Maintained a safe environment, Used ambulatory aids as needed (educated on \T\ assisted with). Abuse screen: Denies threats or abuse. Denies injuries from another. Nutritional screening: No deficits noted. Tuberculosis screening: No symptoms or risk factors identified. Assessment: 19:02 General: SEE TRIAGE ASSESSMENT. ph 19:51 Reassessment: Patient appears in no apparent distress at this time. Patient and/or bm8 family updated on plan of care and expected duration. Pain level reassessed. Patient is alert, oriented x 3, equal unlabored respirations, skin warm/dry/pink. Patient denies pain at this time. Pain: Denies pain. Neuro: Level of Consciousness is obeys commands, lethargic, Oriented to person, [employer] are equal bilaterally. Cardiovascular: Heart tones S1 S2 present Capillary refill < 3 seconds in bilateral fingers Patient's skin is warm and dry. Rhythm is atrial fibrillation Parent/caregiver reports patient has had edema to bilateral lower exts. 1+ pitting edema. Respiratory: Airway is patent Trachea midline Respiratory effort is even, unlabored, Respiratory pattern is regular, symmetrical. GI: Abdomen is round distended, evidence of recent sx. Bowel sounds present X 4 quads. : No signs and/or symptoms were reported regarding the genitourinary system. EENT: No signs and/or symptoms were reported regarding the EENT system. Derm: evidence recent sx, wound still in late healing process. near epi gastric region a small dehiscence noted and covered with gauze, wound in leaking purulent drainage in scant amounts. Musculoskeletal: No signs and/or symptoms reported regarding the musculoskeletal system. 19:51 Reassessment: pt is extremely pale all over and warm to touch. bm8 22:02 Reassessment: Patient appears in no apparent distress at this time. No changes from bm8 previously documented assessment. Patient and/or family updated on plan of care and expected duration. Pain level reassessed. Patient is alert, oriented x 3, equal unlabored respirations, skin warm/dry/pink. 23:21 Reassessment: Patient appears in no apparent distress at this time. No changes from bm8 previously documented assessment. Patient and/or family updated on plan of care and expected duration. Pain level reassessed. Patient is alert, oriented x 3, equal unlabored respirations, skin warm/dry/pink. 05/14 00:51 Reassessment: Patient appears in no apparent distress at this time. Patient and/or bm8 family updated on plan of care and expected duration. Pain level reassessed. Patient is alert, oriented x 3, equal unlabored respirations, skin warm/dry/pink. Vital Signs: 05/13 18:22 BP 82 / 32; Pulse 72; Resp 18; Temp 100.1; Pulse Ox 100% on 2 lpm NC; ph 19:01 BP 88 / 28; Pulse 72; Resp 18; Pulse Ox 100% on 2 lpm NC; Weight 107.95 kg; ph 20:23 BP 101 / 44; Pulse 70; Resp 16; Temp 97.8; Pulse Ox 100% on 2 lpm NC; Pain 0/10; bm8 22:02 BP 96 / 53; Pulse 70; Resp 17; Temp 97.8; Pulse Ox 98% on 2 lpm NC; Pain 0/10; bm8 22:48 BP 92 / 44; Pulse 63; Resp 12; Temp 97.8; Pulse Ox 100% on 2 lpm NC; Pain 0/10; bm8 23:21 BP 101 / 52; Pulse 61; Resp 16; Temp 97.8; Pulse Ox 98% on 2 lpm NC; Pain 0/10; bm8 05/14 00:51 BP 108 / 51; Pulse 61; Resp 17; Temp 97.1; Pulse Ox 99% on 2 lpm NC; Pain 0/10; bm8 20:23 Pain Scale: Adult bm8 22:02 Pain Scale: Adult bm8 22:48 Pain Scale: Adult bm8 23:21 Pain Scale: Adult bm8 05/14 00:51 Pain Scale: Adult bm8 [place] Coma Score: 05/13 19:57 Eye Response: to voice(3). Motor Response: obeys commands(6). Verbal Response: bm8 incomprehensible(2). Total: 11. 22:48 Eye Response: to voice(3). Motor Response: obeys commands(6). Verbal Response: bm8 confused(4). Total: 13. 23:21 Eye Response: to voice(3). Motor Response: obeys commands(6). Verbal Response: bm8 confused(4). Total: 13. 05/14 00:09 Eye Response: to voice(3). Motor Response: obeys commands(6). Verbal Response: sp4 confused(4). Total: 13. 00:51 Eye Response: to voice(3). Motor Response: obeys commands(6). Verbal Response: bm8 confused(4). Total: 13. ED Course: 05/13 18:21 Patient arrived in ED. ph 18:23 Ermelinda Can MD is Attending Physician. sp3 18:25 Triage completed. ph 18:25 Arm band placed on Patient placed in an exam room, on a stretcher, on athletic monitor, ph on pulse oximetry. 18:27 Patient has correct armband on for positive identification. Placed in gown. Bed in low ph position. Call light in reach. Side rails up X 1. Pulse ox on. NIBP on. 18:30 Merlene Pimentel, RN is Primary Nurse. ph 18:55 Initial lab(s) drawn, by ia, sent to lab. First set of blood cultures drawn by me, ph Second set of blood cultures drawn by me. 19:02 Maintain EMS IV. Dressing intact. Good blood return noted. Site clean \T\ dry. Gauge \T\ ph site: 20 LAC. Flushed with 10 mL NS. 19:51 Report received from TRAE ALVARADO. bm8 19:57 Provided Education on: need for admission. bm8 19:57 Oxygen administration via nasal cannula \T\ 2L/min Response to oxygen therapy: symptoms bm8 improved. 20:09 Marroquin cath inserted, using sterile technique, 18 Fr., by me, returned clear yellow rv1 urine. Patient tolerated well. 20:10 Urinalysis w/ reflexes Sent. rv1 20:24 Attending Physician role handed off by Ermelinda Can MD sp4 20:24 Arias Macdonald MD is Attending Physician. sp4 20:55 Chest Abd Pelvis Wo Con In Process Unspecified. EDMS 21:55 [facility] called [facility]. ty 22:02 Assisted provider with central line placement. Set up central line tray. Triple lumen bm8 line placed in right internal jugular. Line placed by Arias Macdonald MD Placement verified by CXR, blood return, Dressed with Tegaderm, Blood was collected. Patient tolerated well. Before procedure, did Practitioner(s) obtain informed consent? Yes. Patient \T\ family education about procedure, CLABSI prevention and S/S of infection? Yes. Time-out/Briefing performed prior to start of procedure? Yes. Was handwashing/sanitizing done immediately prior to procedure? Was patient positioned to in a way to prevent air embolism? Yes. Was procedure site sterilized? Yes, with Was the site allowed to dry? Yes. Was local anesthetic and/or sedation utilized? Yes. During the procedure, did the Practitioner(s) maintain a sterile field? Yes. Were unused ports clamped during insertion? Yes. Was a 2nd qualified MD obtained after 3 unsuccessful insertion attempts? No. Was blood aspirated from each lumen? Yes. After the procedure, did the Practitioner(s) clean the site and apply a sterile dressing? Yes. 22:10 Chest Single View XRAY In Process Unspecified. EDMS 22:37 CT Head Brain wo Cont In Process Unspecified. EDMS 23:53 transport called. ty 05/14 00:51 Lights dimmed. Warm blanket given. Pillow given. Verbal reassurance given. Head of bed bm8 elevated. Diet:. 00:51 Patient transferred, IV remains in place. bm8 14:01 Notified ED physician of other gram negative rods growing in aerobic blood culture. Dr. gill Can informed. Give results to [facility]. Administered Medications: 05/13 19:03 Drug: NS 0.9% IV (30 ml/kg) 30 ml/kg IV at bolus once; Sepsis Protocol; to be given as ph a bolus over 90 minutes Route: IV; Rate: bolus; Site: left antecubital; 19:50 Follow up: Response: No adverse reaction; IV Status: Completed infusion; IV Intake: bm8 3283ml 20:42 Drug: MethylPrednisoLONE IVP 60 mg IVP once Route: IVP; Site: left antecubital; bm8 21:59 Follow up: Response: No adverse reaction bm8 21:42 Drug: Cefepime IVPB 1 grams IVPB at 200 ml/hr once over 30 mins; (mix in NS 100 mL) bm8 {Note: central line right IJ .} Route: IVPB; Rate: 200 ml/hr; Infused Over: 30 mins; Site: Other; 23:22 Follow up: Response: No adverse reaction; IV Status: Completed infusion; IV Intake: bm8 100ml 21:42 Drug: Albumin IVPB 25 grams 100 ml IVPB once; (Note: Albumin 25% concentration) {Note: bm8 2142.} Volume: 100 ml; Route: IVPB; Site: Other; 23:22 Follow up: Response: No adverse reaction; IV Status: Completed infusion; IV Intake: bm8 100ml 21:58 Drug: Mupirocin Topical Ointment 2 % 1 application Topical once Route: Topical; Site: bm8 affected area; 22:43 Follow up: Response: No adverse reaction bm8 22:44 Drug: vancoMYCIN IVPB 2 grams IVPB at calculated rate once Route: IVPB; Rate: bm8 calculated rate; Site: Other; 05/14 00:54 Follow up: Response: No adverse reaction; IV Status: Completed infusion; IV Intake: bm8 500ml Medication: 05/13 18:26 VIS not applicable for this client. ph 05/14 00:51 Blood products: PRBCs X 1 unit given. handed off to Mario Castellon with [facility]8 transfer. Intake: 05/13 19:50 IV: 3283ml; Total: 3283ml. bm8 23:22 IV: 100ml; Total: 3383ml. bm8 23:22 IV: 100ml; Total: 3483ml. bm8 05/14 00:54 IV: 500ml; Total: 3983ml. bm8 Outcome: 00:08 ER care complete, transfer ordered by sp4 00:51 Transferred by ground EMS to [facility] Transfer form completed. bm8 X-rays sent w/ patient. 00:51 Condition: stable 00:51 Instructed on the need for transfer, Demonstrated understanding of instructions, follow-up care, medications, 00:56 Patient left the ED. bm8 Signatures: Dispatcher [employer] EDMerlene Viera RN TRAE Parsons, TRAE Joyce RN ll1 Ermelinda Can MD MD sp3 Mesha Barry Sergey, MD MD sp4 Erlin Sargent Brad RN RN bm8 Corrections: (The following items were deleted from the chart) 05/13 20:49 19:57 No provider procedures requiring assistance completed. bm8 bm8 05/14 14:03 14:01 Notified ED physician of other gram negative rods growing in aerobic blood ll1 culture. Dr. Can informed. ll1
--- NOTE | 2024-05-14 00:09 | EDPHYS ---
Physician Documentation [facility] Name: Ghassan Treviño Age: 83 yrs Sex: Male : 1940 Arrival Date: 05/13/2024 Time: 18:14 Bed 2 Private MD: ED Physician Arias Macdonald HPI: 05/13 19:08 This 83 yrs old Unknown Male presents to ER via EMS with complaints of Altered Mental sp3 Status. 19:08 83-year-old male with history of atrial fibrillation on Eliquis, hypertension, adrenal sp3 insufficiency now presents to the ED with chief complaint altered mental status, low blood pressure and fever. [facility] 4 days [facility]. Today he is mental status was decreased and a called EMS to help load him into the car to take him back to the [facility] however given his status EMS brought him here. Review of systems, history and physical limited secondary to mental status. 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 Historical: - Allergies: 19:57 Amoxicillin; bm8 - Home Meds: 19:57 aspirin 81 mg Oral chew 1 tab once daily [Active]; atorvastatin 20 mg Oral tab 0.5 tab bm8 once daily [Active]; glipizide 5 mg Oral tab 1 tab once daily [Active]; hydralazine 10 mg Oral tab 1 tab 3 TIMES A DAY [Active]; hydrochlorothiazide lisinopril HCTZ 12.5/Lisinopril 20 mg 1 tab daily [Active]; hydrocortisone 10 mg Oral tab 2 tabs morning [Active]; levothyroxine 75 mcg tab 1 tab once daily [Active]; metoprolol succinate 50 mg Oral Tb24 1 tab once daily [Active]; multivitamin Oral daily [Active]; sildenafil citrate 10 mg 0.5 tab Take before sexual intercourse [Active]; testosterone (bulk) miscellaneous [Active]; - PMHx: 19:57 Diabetes - NIDDM; High Cholesterol; Hypertension; Hypothyroidism; melanoma; bm8 - PSHx: 19:57 Unable to Obtain; bm8 - Immunization history:: Adult Immunizations unknown. - Infectious Disease History:: Denies. - Social history:: Smoking status: unknown. ROS: 19:09 Eyes: Negative for injury, pain, redness, and discharge, Cardiovascular: Negative for sp3 chest pain, palpitations, and edema, 19:09 Unable to obtain ROS due to altered mental status, Exam: 19:12 Constitutional: The patient appears Patient withdraws to pain and does open eyes. sp3 Blood pressure 88/28. Soft abdomen noted. Skin pale. Cardiovascular exam normal. Lungs clear. Patient is febrile. Otherwise limited exam. 19:12 Unable to obtain exam due to altered mental status, 19:25 ECG was reviewed by the Attending Physician. EKG demonstrates atrial fibrillation at 70 sp3 bpm with left bundle branch block and occasional PVC. 11 00:09 Constitutional: Frail elderly male , patient is pale, ill-appearing, toxic appearing, sp4 hypotensive on arrival, signs of moderate anemia, moderate obesity, confused on arrival Head/Face: Normocephalic, atraumatic. Eyes: Pupils equal round and reactive to light, extra-ocular motions intact. Lids and lashes normal. Conjunctiva and sclera are not injected. Cornea within normal limits. Periorbital areas with no swelling, redness, or edema. ENT: Nares patent. No nasal discharge, no septal abnormalities noted. Tympanic membranes are normal and external auditory canals are clear. Oropharynx with no redness, swelling, or masses, exudates, or evidence of obstruction, uvula midline. Mucous membranes dry Neck: Trachea midline, no thyromegaly or masses palpated, and no cervical lymphadenopathy. Supple, full range of motion without nuchal rigidity, or vertebral point tenderness. Chest/axilla: Normal chest wall appearance and motion. Nontender with no deformity. No lesions are appreciated. Cardiovascular: Regular rate and rhythm with a normal S1 and S2. No gallops, murmurs, or rubs. Normal PMI, no JVD. No pulse deficits. Pacemaker left chest wall Respiratory: Lungs have equal breath sounds bilaterally, clear to auscultation and percussion. Dyspnea and tachypnea Abdomen/GI: Soft, with normal bowel sounds. No distension or tympany. No guarding or rebound. No evidence of tenderness throughout. Back: No spinal tenderness. No costovertebral tenderness. Male : Normal genitalia with no discharge or lesions. Rectal exam -no blood or melena no mass, no hemorrhoids. Skin: Warm, dry with normal turgor Generalized pallor. MS/ Extremity: Pulses equal, no cyanosis. Neurovascular intact. Full, normal range of motion. Neuro: Awake and alert, Oriented to self only, confused, GCS 13, Moves all extremities Vital Signs: 05/13 18:22 BP 82 / 32; Pulse 72; Resp 18; Temp 100.1; Pulse Ox 100% on 2 lpm NC; ph 19:01 BP 88 / 28; Pulse 72; Resp 18; Pulse Ox 100% on 2 lpm NC; Weight 107.95 kg; ph 20:23 BP 101 / 44; Pulse 70; Resp 16; Temp 97.8; Pulse Ox 100% on 2 lpm NC; Pain 0/10; bm8 22:02 BP 96 / 53; Pulse 70; Resp 17; Temp 97.8; Pulse Ox 98% on 2 lpm NC; Pain 0/10; bm8 22:48 BP 92 / 44; Pulse 63; Resp 12; Temp 97.8; Pulse Ox 100% on 2 lpm NC; Pain 0/10; bm8 23:21 BP 101 / 52; Pulse 61; Resp 16; Temp 97.8; Pulse Ox 98% on 2 lpm NC; Pain 0/10; bm8 05/14 00:51 BP 108 / 51; Pulse 61; Resp 17; Temp 97.1; Pulse Ox 99% on 2 lpm NC; Pain 0/10; bm8 20:23 Pain Scale: Adult bm8 22:02 Pain Scale: Adult bm8 22:48 Pain Scale: Adult bm8 23:21 Pain Scale: Adult bm8 05/14 00:51 Pain Scale: Adult bm8 Osmany Coma Score: 05/13 19:57 Eye Response: to voice(3). Motor Response: obeys commands(6). Verbal Response: bm8 incomprehensible(2). Total: . 22:48 Eye Response: to voice(3). Motor Response: obeys commands(6). Verbal Response: bm8 confused(4). Total: 13. 23:21 Eye Response: to voice(3). Motor Response: obeys commands(6). Verbal Response: bm8 confused(4). Total: 13. 05/14 00:09 Eye Response: to voice(3). Motor Response: obeys commands(6). Verbal Response: sp4 confused(4). Total: 13. 00:51 Eye Response: to voice(3). Motor Response: obeys commands(6). Verbal Response: bm8 confused(4). Total: 13. Procedures: 05/13 21:51 Central Line: the site was prepped with Betadine, in sterile fashion, a triple lumen sp4 catheter was inserted, in the right internal jugular vein, in 2 attempts. placement was verified, by CXR, by blood return, Ultrasound-guided central line, the site was dressed with 4X4s, Tegaderm, using sterile technique, the patient tolerated the procedure, well, Ultrasound-guided central line placed for resuscitation. MDM: 18:23 Medical Screening Exam initiated sp3 19:12 Data reviewed: vital signs, nurses notes, lab test result(s), EKG, radiologic studies. sp3 ED course: 83-year-old male with fever and altered mental status and low blood pressure in the setting of adrenal insufficiency. Will resuscitate on sepsis protocol with IV fluids, also administer steroids, empiric antibiotics and general supportive care. CT scan of the chest, abdomen abdomen, and pelvis pending. Will reevaluate after IV fluids and continue any indicated intervention. Consider UTI versus pneumonia versus sepsis. Consider low blood pressure due to adrenal insufficiency rather than shock. Disposition will be admission pending workup with probable signed out to nighttime physician for final reevaluation and disposition.. 19:58 ED course: Reevaluation for sepsis after fluid bolus now demonstrates blood pressure sp3 115/58 and heart rate 70.. 21:51 ED course: Sepsis reevaluation complete, central line placed for resuscitation. sp4 21:54 Differential Diagnosis: electrolyte abnormality, hypoglycemia, meningitis, overdose, sp4 pneumonia, seizure, sepsis. ED course: EXAM: CT CHEST, ABDOMEN AND PELVIS WITHOUT CONTRAST CLINICAL INDICATION: sepsis TECHNIQUE: CT chest, abdomen and pelvis was performed without contrast, as per department protocol. Axial, sagittal and coronal reconstructions were obtained. One or more of the following dose reduction techniques were used: Automated exposure control, adjustment of the mA and/or kV according to patient size, and/or iterative reconstruction. Unless otherwise specified, incidental findings do not require dedicated imaging follow-up. Examination is limited by the lack of intravenous contrast material. COMPARISON: No prior exam. FINDINGS: LUNGS: Mild linear subsegmental atelectasis is seen in both posterior lung bases. Cardiac size is prominent with pacer device present. PLEURA: No pleural effusion. No pneumothorax. MEDIASTINUM AND LYMPH NODES: No mediastinal mass or fluid collection. Normal size mediastinal, hilar, and axillary lymph nodes. OSSEOUS STRUCTURES AND CHEST WALL: Intact. LIVER: Normal in size and contour. No focal lesion or biliary dilatation. Contracted PANCREAS: No mass, ductal dilation, or мария-pancreatic fluid. SPLEEN: Normal size. No focal lesion. ADRENALS: Normal; no mass. KIDNEYS: Normal size and contour. No hydronephrosis. URINARYBLADDER: Normal contour. GASTROINTESTINAL TRACT: Nonspecific inflammatory changes are seen in the fat in the right upper [facility] [address] [address] Final Radiology Report Name: GHASSAN TREVIÑO Age: 83y Date: 05/13/2024 6:29 PM : 1940 Study: Chest Abd Pelvis Wo Con Requesting Physician: Ermelinda Can [id number] GHASSAN TREVIÑO Page 1 of 2 [id number] Chest Abd Pelvis Wo Con quadrant adjacent to small bowel and large bowel loops. This is presumably related to right hemicolectomy. APPENDIX: Absent LYMPH NODES: No lymphadenopathy. MUSCULOSKELETAL: Moderate lower lumbar degenerative changes. OTHER: IMPRESSION: Mild nonspecific inflammatory changes in the right upper quadrant fat presumably related to right hemicolectomy. Correlation with surgical history is suggested. Elsewhere, no acute process identified. . 23:59 ED course: EXAMINATION: ONE VIEW CHEST XR CLINICAL INDICATION: after central line sp4 placement TECHNIQUE: Frontal chest projection is submitted. Examination is limited by patient positioning and technique. COMPARISON: No prior exam. FINDINGS: Mild interstitial pulmonary edema. The heart is moderately enlarged in size. 2-lead pacer device present. Sternotomy wires. Right-sided venous catheter is in place with tip in the SVC. No pneumothorax. IMPRESSION: No postprocedural pneumothorax seen. . 05/14 00:09 Consideration of Admission/Observation Patient was admitted/placed on observation. sp4 Escalation of care including admission/observation considered. Management of patient was discussed with the following: Director Of Audiology: [facility] . ED course: Accepted by the [facility] . 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 Axial, sagittal, and coronal images are interpreted. This exam was performed according to our departmental dose-optimization protocol, which includes automated exposure control, adjustment of the mA and/or kV according to patient size and/or use of iterative reconstruction technique. DLP: 1042 mGy-cm. FINDINGS: CORTEX: There is no evidence of cerebral edema, mass, mass effect, hemorrhage, or recent cortical infarct. The wilkins-white distinction is maintained. WHITE MATTER: No significant white matter disease or atrophy. BASAL GANGLIA: Basal ganglia are intact. VENTRICLES: Generalized prominence of the ventricles and subarachnoid spaces compatible with volume loss. No acute extraaxial process identified. POSTERIOR FOSSA: The brain stem and cerebellum are within normal limits. No mass, mass effect, hemorrhage or recent cortical infarct is present. The foramen magnum is normal. SKULL: No acute skull abnormality is seen. No lytic or sclerotic lesions. ORBITS, VISUALIZED PARANASAL SINUSES AND MASTOIDS: Visualized paranasal sinuses are clear. The mastoid air cells are clear. No orbital pathology. IMPRESSION: 1. No acute intracranial process. 2. Generalized volume loss. . 05/13 20:39 Order name: ABO/RH typing [facility] 05/13 20:39 Order name: Antibody Screen [facility] 05/13 18:29 Order name: Blood Culture Adult (2) [facility] 05/13 18:29 Order name: CBC with Diff; Complete Time: 21:48 [facility] 05/13 18:29 Order name: CMP; Complete Time: 20:26 [facility] 05/13 18:29 Order name: Lactate w/ 2H reflex if indic.; Complete Time: 20:26 [facility] 05/13 18:29 Order name: Protime (+inr); Complete Time: 19:58 [facility] 05/13 18:29 Order name: Ptt, Activated; Complete Time: 19:58 [facility] 05/13 18:29 Order name: Urinalysis w/ reflexes; Complete Time: 21:48 [facility] 05/13 18:29 Order name: Troponin High Sensitivity; Complete Time: 20:26 [facility] 05/13 18:29 Order name: Flu; Complete Time: 20:26 3 05/13 18:29 Order name: SARS RAPID; Complete Time: 20:26 3 05/13 18:29 Order name: Strep; Complete Time: 20:26 3 05/13 20:05 Order name: Throat Culture [facility] 05/13 20:36 Order name: PRBC [facility] 05/13 20:39 Order name: CBC Smear Scan; Complete Time: 21:48 EDME 05/13 20:56 Order name: Urine Culture [facility] 05/13 22:02 Order name: Ghost Lactate-NO COLLECT Timer; Complete Time: 22:30 EDMS 05/13 22:24 Order name: Lactate Sepsis 2 HR Follow-up; Complete Time: 22:30 EDMS 05/13 23:17 Order name: ABO/RH no charge; Complete Time: 23:59 EDMS 05/13 20:28 Order name: Chest Abd Pelvis Wo Con; Complete Time: 21:48 [facility] 05/13 21:52 Order name: Chest Single View XRAY; Complete Time: 22:30 [facility] 05/13 21:55 Order name: CT Head Brain wo Cont [facility] 05/13 18:29 Order name: EKG; Complete Time: 18:29 3 05/13 18:29 Order name: Accucheck; Complete Time: 19:01 [facility] 05/13 18:29 Order name: Cardiac monitoring; Complete Time: 19:50 3 05/13 18:29 Order name: EKG - Nurse/Tech; Complete Time: 19:50 [facility] 05/13 18:29 Order name: IV Saline Lock - Large Bore; Complete Time: 19:01 [facility] 05/13 18:29 Order name: Labs collected and sent; Complete Time: 19:01 3 05/13 18:29 Order name: O2 Per Protocol; Complete Time: 19:01 3 05/13 18:29 Order name: O2 Sat Monitoring; Complete Time: 19:01 3 05/13 18:29 Order name: Vital Signs; Complete Time: 19:01 3 05/13 18:29 Order name: Marroquin; Complete Time: 20:10 3 05/13 20:37 Order name: Central Line Dressing Kit; Complete Time: 21:58 4 05/13 20:37 Order name: Central Line Kit; Complete Time: 21:58 4 05/13 20:37 Order name: Chlorhexidine prep; Complete Time: 21:58 sp4 05/13 20:37 Order name: Consent for central line completed; Complete Time: :58 sp4 05/13 20:37 Order name: Line Caps x3; Complete Time: 21:58 sp4 05/13 20:37 Order name: NS Flushes x3; Complete Time: :58 sp4 05/13 20:37 Order name: Sterile Gloves; Complete Time: :58 sp4 05/13 20:37 Order name: Sterile Probe Cover; Complete Time: :58 sp4 Administered Medications: 05/13 19:03 Drug: NS 0.9% IV (30 ml/kg) 30 ml/kg IV at bolus once; Sepsis Protocol; to be given as ph a bolus over 90 minutes Route: IV; Rate: bolus; Site: left antecubital; 19:50 Follow up: Response: No adverse reaction; IV Status: Completed infusion; IV Intake: bm8 3283ml 20:42 Drug: MethylPrednisoLONE IVP 60 mg IVP once Route: IVP; Site: left antecubital; bm8 21:59 Follow up: Response: No adverse reaction bm8 21:42 Drug: Cefepime IVPB 1 grams IVPB at 200 ml/hr once over 30 mins; (mix in NS 100 mL) bm8 {Note: central line right IJ .} Route: IVPB; Rate: 200 ml/hr; Infused Over: 30 mins; Site: Other; 23:22 Follow up: Response: No adverse reaction; IV Status: Completed infusion; IV Intake: bm8 100ml 21:42 Drug: Albumin IVPB 25 grams 100 ml IVPB once; (Note: Albumin 25% concentration) {Note: bm8 2142.} Volume: 100 ml; Route: IVPB; Site: Other; 23:22 Follow up: Response: No adverse reaction; IV Status: Completed infusion; IV Intake: bm8 100ml 21:58 Drug: Mupirocin Topical Ointment 2 % 1 application Topical once Route: Topical; Site: bm8 affected area; 22:43 Follow up: Response: No adverse reaction bm8 22:44 Drug: vancoMYCIN IVPB 2 grams IVPB at calculated rate once Route: IVPB; Rate: bm8 calculated rate; Site: Other; 05/14 00:54 Follow up: Response: No adverse reaction; IV Status: Completed infusion; IV Intake: bm8 500ml Disposition: 00:07 Critical Care:. sp4 Disposition Summary: 05/14/24 00:08 Transfer Ordered Notes: Transfer Location: [facility] sp4 Reason: Higher level of care sp4 Condition: Stable sp4 Problem: new sp4 Symptoms: have improved sp4 Accepting Physician: [facility] Attending MD accepted without conference (05/14/24 00:56) bm8 Diagnosis - Severe sepsis with septic shock sp4 - Symptomatic anemia, acute on chronic renal failure, acute delirium sp4 multifactorial, acute metabolic encephalopathy Discharge Instructions: - Discharge Summary Sheet ty Forms: - Medication Reconciliation Form sp4 - SBAR form ty Critical care time excluding procedures: 00:07 Critical care time: Bedside Care: 46 minutes, Consultation: 12 minutes, Family sp4 Intervention: 12 minutes. Total time: 70 minutes Signatures: Dispatcher [employer] EDMS Cheyanne Pedersen FNP-C FNP-Ckb Hall, Patricia, RN RN Ermelinda Can MD MD sp3 Arias Macdonald MD MD sp4 Leo Jain, RN RN bm8 Corrections: (The following items were deleted from the chart) 05/13 18:29 18:29 BLOOD CULTURE*+BA.LAB.BRZ ordered. EDMS EDMS 18:29 18:29 CBC+H.LAB.BRZ ordered. EDMS EDMS 18:29 18:29 COMPREHENSIVE METABOLIC PANEL+C.LAB.BRZ ordered. EDMS EDMS 18:29 18:29 LACTATE+C.LAB.BRZ ordered. EDMS EDMS 18:29 18:29 PROTIME (+INR)+COAG.LAB.BRZ ordered. EDMS EDMS 18:29 18:29 PTT, ACTIVATED+COAG.LAB.BRZ ordered. EDMS EDMS 18:29 18:29 Urinalysis+U.LAB.BRZ ordered. EDMS EDMS 18:29 18:29 Troponin High Sensitivity+C.LAB.BRZ ordered. EDMS EDMS 18:29 18:29 Influenza Screen (A \T\ B)+BA.LAB.BRZ ordered. EDMS EDMS 18:29 18:29 SARS-COV-2 Antigen Rapid+I.LAB.BRZ ordered. EDMS EDMS 18:29 18:29 Group A Streptococcus Rapid Sc+BA.LAB.BRZ ordered. EDMS EDMS 19:10 19:08 83-year-old male with history of atrial fibrillation on Eliquis, hypertension, sp3 adrenal insufficiency now presents to the ED with chief complaint altered mental status, low blood pressure and fever. [facility] and discharged 4 days ago. Today he is mental status was decreased and a called EMS to help load him into the car to take him back to the [facility] however given his status EMS brought him here. Review of systems, history and physical limited secondary to mental status.. sp3 20:28 18:29 Chest Abdomen Pelvis W Con+CT.RAD.BRZ ordered. EDME EDMS 20:37 20:37 PACKED RBC LEUKORED+BB.LAB.BRZ ordered. EDME EDMS 22:24 20:37 TYPE AND SCREEN+BB.LAB.BRZ ordered. EDME EDME 05/14 00:56 00:08 [facility] Attending accepted without conference sp4 bm8
[2024-05-14 01:12] VITALS: BP 108/51; TEMP 97.1; O2SAT 99
--- NOTE | 2024-05-14 03:53 | RAD REPORT ---
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 Axial, sagittal, and coronal images are interpreted. This exam was performed according to our departmental dose-optimization protocol, which includes auto mated exposure control, adjustment of the mA and/or kV according to patient size and/or use of iterative reconstruction technique. DLP: 1042 mGy-cm. FINDINGS: CORTEX: There is no evidence of cerebral edema, mass, mass effect, hemorrhage, or recent cortical inf arct. The wilkins-white distinction is maintained. WHITE MATTER: No significant white matter disease or atrophy. BASAL GANGLIA: Basal ganglia are intact. VENTRICLES: Generalized prominence of the ventricles and subarachnoid spaces compatible with volume l oss. No acute extra-axial process identified. POSTERIOR FOSSA: The brain stem and cerebellum are within normal limits. No mass, mass effect, hemo rrhage or recent cortical infarct is present. The foramen magnum is normal. SKULL: No acute skull abnormality is seen. No lytic or sclerotic lesions. ORBITS, VISUALIZED PARANASAL SINUSES AND MASTOIDS: Visualized paranasal sinuses are clear. The mastoi d air cells are clear. No orbital pathology. IMPRESSION: 1. No acute intracranial process. 2. Generalized volume loss. Standardized Report: [id number]. Electronically signed by: James Pineda MD 05/13/2024 11:25 PM RESEARCH PROFESSIONAL Due to temporary technical issues with the PACS/[employer] reporting system, reports are being birdie d by the in-house radiologist without review as a courtesy to ensure prompt reporting the interpreting radiologist is fully responsible for the content of the report. Transcribed Date/Time: 05/14/2024 3:53 AM
== END 2024-05-14 00:56 ==
LOC: ER 18:14
PROC: 30233N1 Transfusion of Nonautologous Red Blood Cells into Peripheral Vein, Percutaneous Approach (ICD-10-PCS; principal; 2024-05-14)
DX: D64.9 Anemia, unspecified (principal); R65.21 Severe sepsis with septic shock; E11.22 Type 2 diabetes mellitus with diabetic chronic kidney disease; I12.9 Hypertensive chronic kidney disease with stage 1 through stage 4 chronic kidney disease, or unspecified chronic kidney disease; N18.9 Chronic kidney disease, unspecified; N17.9 Acute kidney failure, unspecified; G93.41 Metabolic encephalopathy; R41.0 Disorientation, unspecified; E78.00 Pure hypercholesterolemia, unspecified; Z79.82 Long term (current) use of aspirin; Z11.52 Encounter for screening for COVID-19
CPT/HCPCS: 87040 ×2; 87070; 87088; 85025; 81001; 87086; 36415; 86900; 86850; 87205; 85610; 86901; 87081; 83605 ×2; 85730; 86920 ×2; 84484; 80053; 87804 ×2; 70450; 71250; 74176; 71045; 87811; 36556; 36430; P9016; P9047; J7050; J7040; J7030 ×2; J0692; J2919; 87077; 87186

== ENCOUNTER 2024-07-22 16:15 | Emergency (ER) | payer OTHER ==
[2024-07-22 17:19] LABS: Absolute Basophils 0.1 K/uL (0-0.5); Absolute Lymphocytes (CBC) 0.8 K/uL (0.7-4.9); Absolute Monocytes 0.9 K/uL (0.1-1.3); Absolute Neutrophil 27.8 K/uL (1.8-8.0); Basophils % 0.2 % (0-1.3); Hematocrit 28.7 % (39.6-49.0); Hemoglobin 8.9 g/dL (13.6-17.9); Lymphocytes % 2.7 % (15.3-44.8); MCH 27.8 pg (27.0-35.0); MCV 89.8 fL (80-100); Monocytes % 3.2 % (3.3-12.3); Neutrophils % 93.9 % (41.7-73.7); Platelets 121 thou/uL (152-406); Red Cell Distribution Width 20.5 % (12.1-15.2)
[2024-07-22] MEDS ORDERED: NA CHLORIDE 0.9% 100 ML ONE (17:22)
[2024-07-22] MEDS ORDERED: CEFEPIME 2 GM VIAL ONE (17:22)
[2024-07-22] MEDS ORDERED: NA CHLORIDE 0.9% 500 ML ONE ×2 (17:22→17:46)
[2024-07-22] MEDS ORDERED: HYDROCORTISONE SUC 100 MG INJ ONE ×2 (17:22→19:54)
[2024-07-22 17:28] LABS: PTT, Activated Partial Thromb 28.4 SECONDS (24.3-36.9); Protime INR 2.01
--- NOTE | 2024-07-22 17:41 | RAD REPORT ---
Procedure: Chest Single View HISTORY: Fever COMPARISON: May 2024 FINDINGS: The lungs appear clear of acute infiltrate. No significant pleural effusion noted. The heart is moderately to markedly enlarged pacemaker leads in place. Post surgical changes involve the chest.. IMPRESSION: No acute abnormality is displayed.
[2024-07-22] MEDS ORDERED: NA CHLORIDE 0.9% 1,000 ML ONE (17:46)
[2024-07-22 17:56] LABS: Albumin 2.5 g/dL (3.4-5.0); Albumin/Globulin Ratio 0.8 (1.1-1.8); Anion Gap 11.8 mEq/L (5.0-15.0); Bilirubin Total 2.7 mg/dL (0.2-1.0); Protein, Total 5.5 g/dL (6.4-8.2)
[2024-07-22 17:57] LABS: Potassium 4.8 mEq/L (3.5-5.1)
[2024-07-22 18:00] LABS: Sqamous Epithelial <5 /HPF (None Seen); Urine Bacteria <20 /HPF (<20); Urine Crystals Unidentified Few /HPF (None Seen); Urine Culture Reflex Order NOT NEEDED; Urine WBC Clump Occasional /HPF (None Seen)
[2024-07-22 18:03] LABS: Troponin High Sensitivity 80.3 pg/mL (<58.9)
[2024-07-22 18:04] LABS: Urine Bilirubin NEGATIVE (Negative); Urine Blood Negative (Negative); Urine Clarity Extremely Turbid (Clear); Urine Color Yellow (Yellow); Urine Glucose TRACE (Negative); Urine Ketones NEGATIVE (Negative); Urine Microscopic Reflex YN NO UMIC; Urine Nitrite NEGATIVE (Negative); Urine Protein 1+ (Negative); Urine Urobilinogen 1+ (Normal)
--- NOTE | 2024-07-22 18:11 | ER ---
Nurse's Notes [facility] Name: Fernandez Keller Age: 83 yrs Sex: Male : 1940 Arrival Date: 07/22/2024 Time: 16:15 Bed 14 Private MD: Diagnosis: Severe sepsis with septic shock;Addisonian crisis;Anemia, unspecified;Elevated white blood cell count;Acute kidney failure, unspecified;Obesity, unspecified;Acute cholecystitis Presentation: 07/22 16:39 Chief complaint: EMS states: they were toned out for generalized weakness and low BP at [facility] home. family also reports fever at home yesterday of 102. BP for EMS was 60's/40's. Coronavirus screen: At this time, the client does not indicate any symptoms associated with coronavirus-19. Ebola Screen: No symptoms or risks identified at this time. Initial Sepsis Screen: Does the patient meet any 2 criteria? No. Patient's initial sepsis screen is negative. Does the patient have a suspected source of infection? No. Patient's initial sepsis screen is negative. Risk Assessment: Do you want to hurt yourself or someone else? Patient reports no desire to harm self or others. Onset of symptoms was July 22, 2024. Care prior to arrival: Medication(s) given: Normal saline infusion, 250 mL IV initiated. in the right hand, 24G Glucose check: 90. 16:39 Method Of Arrival: EMS: [place] [id number] 16:39 Acuity: [place] 2 6 Triage Assessment: 16:44 General: Appears in no apparent distress. comfortable, obese, well groomed, well kc6 developed, Behavior is calm, cooperative, appropriate for age, drowsy, Reports fever for 12-24 hours, feeling ill for 0-12 hours. Pain: Denies pain. EENT: No signs and/or symptoms were reported regarding the EENT system. Neuro: Level of Consciousness is awake, alert, obeys commands, lethargic, Oriented to person, place, time, situation, Appropriate for age. Cardiovascular: Capillary refill < 3 seconds Rhythm is regular. Respiratory: Airway is patent Trachea midline Respiratory effort is even, unlabored, Respiratory pattern is regular, symmetrical. GI: No signs and/or symptoms were reported involving the gastrointestinal system. : No signs and/or symptoms were reported regarding the genitourinary system. Derm: No signs and/or symptoms reported regarding the dermatologic system. Skin is intact, is fragile, is thin, with poor turgor Skin is dry, Skin is pale, Skin temperature is cool. Musculoskeletal: No signs and/or symptoms reported regarding the musculoskeletal system. Circulation, motion, and sensation intact. Range of motion: intact in all extremities. Historical: - Allergies: 16:42 Amoxicillin; kc6 - Home Meds: 21:54 aspirin 81 mg Oral chew 1 tab once daily [Active]; aa10 - PMHx: 16:42 Diabetes - NIDDM; High Cholesterol; Hypertension; Hypothyroidism; melanoma; Anemia; kc6 - Immunization history:: Adult Immunizations up to date. - Infectious Disease History:: Denies. - Social history:: Smoking status: Patient denies any tobacco usage or history of. - Family history:: not pertinent. Screenin:43 [facility] ED Fall Risk Assessment (Adult) History of falling in the last 3 months, kc6 including since admission No falls in past 3 months (0 pts) Confusion or Disorientation No (0 pts) Intoxicated or Sedated No (0 pts) Impaired Gait No (0 pts) Mobility Assist Device Used No (0 pt) Altered Elimination No (0 pt) Score/Fall Risk Level 0 - 2 = Low Risk Oriented to surroundings, Maintained a safe environment, Educated pt \T\ family on fall prevention, incl call for assistance when getting out of bed. Abuse screen: Denies threats or abuse. Denies injuries from another. Nutritional screening: No deficits noted. Tuberculosis screening: No symptoms or risk factors identified. Assessment: 16:43 Reassessment: please see triage assessment. pt placed in Trendelenburg with knees kc6 elevated. 16:43 Reassessment: orthostatics held at this time due to pts BP of 71/46. kc6 17:52 Reassessment: Patient appears in no apparent distress at this time. No changes from kc6 previously documented assessment. Patient and/or family updated on plan of care and expected duration. Pain level reassessed. Patient is alert, oriented x 3, equal unlabored respirations, skin warm/dry/pink. 18:52 Reassessment: Patient appears in no apparent distress at this time. No changes from kc6 previously documented assessment. Patient and/or family updated on plan of care and expected duration. Pain level reassessed. Patient is alert, oriented x 3, equal unlabored respirations, skin warm/dry/pink. 21:54 Reassessment: Patient appears in no apparent distress at this time. No changes from aa10 previously documented assessment. Patient and/or family updated on plan of care and expected duration. Pain level reassessed. Patient is alert, oriented x 3, equal unlabored respirations, skin warm/dry/pink. 07/23 11:37 Reassessment: Positive Blood Culture Results - G- Rods in anaerobic bottles x 2, Bianca rueda RN at [facility] notified [phone]. Vital Signs: 07/22 16:39 BP 124 / 99; Pulse 63; Resp 20 S; Temp 97.9(O); Pulse Ox 100% on R/A; Weight 100.7 kg kc6 (M); Pain 0/10; 17:06 BP 71 / 46; Pulse 61; Resp 19 S; Pulse Ox 100% on R/A; kc6 17:17 BP 61 / 46; kc6 17:45 BP 68 / 44; Pulse 64; Resp 19 S; Pulse Ox 100% on R/A; kc6 17:50 BP 78 / 47; Pulse 65; Resp 20 S; Pulse Ox 98% on R/A; kc6 18:00 BP 81 / 54; kc6 18:11 BP 89 / 51; Pulse 65; Resp 20 S; Pulse Ox 100% on R/A; kc6 18:31 BP 77 / 56; Pulse 65; Resp 18 S; Pulse Ox 100% on R/A; kc6 18:38 BP 86 / 56; Pulse 62; Resp 19 S; Pulse Ox 99% on R/A; kc6 20:04 BP 119 / 64; Pulse 99; Resp 20 S; Temp 97.8; Pulse Ox 99% on R/A; aa10 21:52 BP 109 / 59; Pulse 64; Resp 20 S; Temp 98; Pulse Ox 99% on R/A; aa10 16:39 Pain Scale: Adult kc6 ED Course: 16:19 Patient arrived in ED. bd 16:39 Esther Borges, RN is Primary Nurse. [facility] 16:42 Triage completed. [facility] 16:42 Arm band placed on. [facility] 16:42 Patient has correct armband on for positive identification. Bed in low position. Call kc6 light in reach. Side rails up X2. personnel monitor on. Pulse ox on. NIBP on. Door closed. Noise minimized. Lights dimmed. Warm blanket given. Pillow given. 16:42 One-on-one care X 60 minutes. kc6 16:42 Maintain EMS IV. Dressing intact. Good blood return noted. Site clean \T\ dry. Gauge \T\ hayley 6 site: 24G RHAND. Flushed with 10 mL NS. Patient maintains SpO2 saturation greater than 95% on room air. 16:44 Ozzy Denise MD is Attending Physician. rt 17:08 Inserted saline lock: 20 gauge in left antecubital area, using aseptic technique. Blood kc6 collected. Flushed with 10 mL NS. 17:15 Type And Screen Sent. bc6 17:15 Troponin High Sensitivity Sent. bc6 17:15 Blood Culture Adult (2) Sent. bc6 17:15 CBC with Diff Sent. bc6 17:15 CMP Sent. bc6 17:15 Lactate w/ 2H reflex if indic. Sent. bc6 17:15 Protime (+inr) Sent. bc6 17:15 Ptt, Activated Sent. bc6 17:15 Urinalysis w/ reflexes Sent. bc6 17:15 Urine collected: straight cath specimen, cheri colored. bc6 17:29 Chest Single View XRAY In Process Unspecified. EDMS 18:11 Diet: Patient given ice chips. kc6 18:23 initiated transfer to [facility], pt denied due to holds in the ER and no capacity at this time per [place]. 18:55 Assisted provider with central line placement. Set up central line tray. Triple lumen kc6 line placed in left internal jugular. Line placed by Ozzy Denise MD Placement verified by CXR, blood return, Dressed with Tape, Tegaderm, Blood was collected. Patient tolerated well. Before procedure, did Practitioner(s) obtain informed consent? Yes. Patient \T\ family education about procedure, CLABSI prevention and S/S of infection? Yes. Time-out/Briefing performed prior to start of procedure? Yes. Was handwashing/sanitizing done immediately prior to procedure? Yes. Was patient positioned to in a way to prevent air embolism? Yes. Was procedure site sterilized? Yes, with chlorhexidine. Was the site allowed to dry? Yes. Was local anesthetic and/or sedation utilized? Yes. During the procedure, did the Practitioner(s) maintain a sterile field? Yes. Were unused ports clamped during insertion? Yes. Was a 2nd qualified MD obtained after 3 unsuccessful insertion attempts? No. Was blood aspirated from each lumen? Yes. After the procedure, did the Practitioner(s) clean the site and apply a sterile dressing? Yes. 19:00 Report given to Nida Goldberg RN. [facility] 19:37 Chest Single View XRAY In Process Unspecified. EDMS 20:00 Attending Physician role handed off by Ozzy Denise MD [facility] 20:00 Evan Akers MD is Attending Physician. [facility] 20:23 initiated transfer with Brian at [facility] \T\1948. Pt was accepted to [facility] \T\2004. number for nurse to nurse report [phone]. [place] to transfer pt. accepting Dr Szymanski. 20:32 US Abdomen Limited In Process Unspecified. EDMS 21:02 CT Chest Abdomen Pelvis W/O Contrast In Process Unspecified. EDMS 07/23 05:16 lab report anaerobic blood cultures growing gram negative rods. vc1 Administered Medications: 07/22 17:08 Drug: NS 0.9% IV 1000 ml IV at 1000 ml once; to be given as a bolus over 60 minutes kc6 Route: IV; Rate: 1000 ml; Site: left antecubital; 17:45 Follow up: Response: No adverse reaction; Blood pressure is unchanged; IV Status: kc6 Completed infusion; IV Intake: 1000ml 17:34 Drug: Solu-CORTEF IVP 100 mg IVP once Route: IVP; Site: left antecubital; kc6 18:19 Follow up: Response: No adverse reaction; Blood pressure is elevated kc 17:34 Drug: NS 0.9% IV 500 ml 500 ml IV at 1 bolus once; to be given as a bolus over 30 kc6 minutes Volume: 500 ml; Route: IV; Rate: 1 bolus; Site: left antecubital; 17:45 Follow up: Response: No adverse reaction; Blood pressure is unchanged; IV Status: kc6 Completed infusion; IV Intake: 500ml 17:38 Drug: Cefepime IVPB 2 grams IVPB at 200 ml/hr once over 30 mins; (mix in NS 100 mL) kc6 Route: IVPB; Rate: 200 ml/hr; Infused Over: 30 mins; Site: left antecubital; 18:18 Follow up: Response: No adverse reaction; IV Status: Completed infusion; IV Intake: kc6 100ml 17:50 Drug: NS 0.9% IV (30 ml/kg) 30 ml/kg IV at bolus once; Sepsis Protocol; to be given as kc6 a bolus over 90 minutes Route: IV; Rate: bolus; Site: left antecubital; 19:17 Follow up: Response: No adverse reaction; IV Status: Completed infusion; IV Intake: kc6 1500ml 18:31 Drug: vancoMYCIN IVPB 1 grams IVPB once over 2 hrs Route: IVPB; Infused Over: 2 hrs; kc6 Site: left antecubital; 20:11 Follow up: Response: No adverse reaction; Marked relief of symptoms aa10 19:56 Drug: Solu-CORTEF IVP 100 mg IVP once Route: IVP; Site: left forearm; br2 20:11 Follow up: Response: No adverse reaction; Marked relief of symptoms aa10 19:56 Drug: Pantoprazole IVP 40 mg IVP once Route: IVP; Site: left forearm; br2 20:10 Follow up: Response: No adverse reaction; Marked relief of symptoms aa10 21:13 Drug: levofloxacin IVPB 500 mg 100 ml IVPB once over 60 mins Volume: 100 ml; Route: br2 IVPB; Infused Over: 60 mins; Site: left antecubital; 21:50 Follow up: Response: No adverse reaction; Marked relief of symptoms aa10 21:51 Not Given (MAP within goal of over 65): norepinephrine0.1 mcg/kg/min IV at calculated aa10 rate Per protocol; (Standard concentration 4 mg / 250 mL D5W); Recommended max rate 3 mcg/kg/min; Titrate 0.05 mcg/kg/min as often as every 5 minutes to achieve goal (see titration policy); Goal parameter MAP greater than 65 mmHg. Medication: 21:54 VIS not applicable for this client. aa10 Intake: 17:45 IV: 1000ml; Total: 1000ml. kc6 17:45 IV: 500ml; Total: 1500ml. kc6 18:18 IV: 100ml; Total: 1600ml. kc6 19:17 IV: 1500ml; Total: 3100ml. kc6 Outcome: 18:11 ER care complete, transfer ordered by . rt 21:55 Transferred by ground EMS to other acute care facility: [facility] system. Transfer form aa10 completed. Note: patient transported to [facility] by [facility]. 21:55 Condition: good 21:55 Discharge instructions given to EMS, Instructed on the need for transfer, Demonstrated understanding of 21:58 Patient left the ED. vc1 Signatures: Dispatcher [employer] EDMS Dee Dee Reed Corey, MD MD cha Baxter, Heather RN RN hb Calcote, Celia RN RN vc1 Esther Borges RN RN kc6 Ozzy Denise MD MD rt Sayra Morales Kelsey Maroul [facility] Nida Goldberg RN RN br2 Jessi Yepez RN RN aa10 Corrections: (The following items were deleted from the chart) 17:06 16:53 NS 0.9% IV 1000 ml IV at 1000 ml in left antecubital kc6 hb 17:06 17:06 Response: No adverse reaction; IV Status: Completed infusion; IV Intake: 1000ml hbhb 17:52 17:52 Reassessment: orthostatics held at this time due to pts BP of kc6 kc6 19:56 19:55 Solu-CORTEF IVP 100 mg IVP in left jugular br2 br2
--- NOTE | 2024-07-22 18:11 | EDPHYS ---
Physician Documentation [facility] Name: Fernandez Keller Age: 83 yrs Sex: Male : 1940 Arrival Date: 07/22/2024 Time: 16:15 Bed 14 Private MD: ED Physician Evan Akers HPI: 07/22 18:38 This 83 yrs old Male presents to ER via EMS with complaints of Blood Pressure Problem. rt 18:38 Patient presents to the ED with hypertension. 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 Reportedly had a temperature 102 yesterday, became weak, dizzy today with hypotension down to the 60s. Denies other acute complaints at this time, symptoms are severe in severity, no other aggravating alleviating factors.. Historical: - Allergies: 16:42 Amoxicillin; kc6 - Home Meds: 21:54 aspirin 81 mg Oral chew 1 tab once daily [Active]; aa10 - PMHx: 16:42 Diabetes - NIDDM; High Cholesterol; Hypertension; Hypothyroidism; melanoma; Anemia; kc6 - Immunization history:: Adult Immunizations up to date. - Infectious Disease History:: Denies. - Social history:: Smoking status: Patient denies any tobacco usage or history of. - Family history:: not pertinent. ROS: 18:38 Cardiovascular: Negative for chest pain, palpitations, and edema, Respiratory: Negative rt for shortness of breath, cough, wheezing, and pleuritic chest pain, Abdomen/GI: Negative for abdominal pain, nausea, vomiting, diarrhea, and constipation, Skin: Negative for injury, rash, and discoloration, 18:38 Constitutional: Positive for fever, malaise, 18:38 Neuro: Positive for dizziness, weakness, Exam: 18:38 Constitutional: This is a well developed, well nourished patient who is awake, alert, rt and in no acute distress. Head/Face: Normocephalic, atraumatic. Chest/axilla: Normal chest wall appearance and motion. Nontender with no deformity. No lesions are appreciated. Cardiovascular: Regular rate and rhythm with a normal S1 and S2. No gallops, murmurs, or rubs. Normal PMI, no JVD. No pulse deficits. Respiratory: Lungs have equal breath sounds bilaterally, clear to auscultation and percussion. No rales, rhonchi or wheezes noted. No increased work of breathing, no retractions or nasal flaring. Abdomen/GI: Soft, non-tender, with normal bowel sounds. No distension or tympany. No guarding or rebound. No evidence of tenderness throughout. Skin: Warm, dry with normal turgor. Normal color with no rashes, no lesions, and no evidence of cellulitis. MS/ Extremity: Pulses equal, no cyanosis. Neurovascular intact. Full, normal range of motion. 18:38 ECG was reviewed by the Attending Physician. Vital Signs: 16:39 BP 124 / 99; Pulse 63; Resp 20 S; Temp 97.9(O); Pulse Ox 100% on R/A; Weight 100.7 kg kc6 (M); Pain 0/10; 17:06 BP 71 / 46; Pulse 61; Resp 19 S; Pulse Ox 100% on R/A; kc6 17:17 BP 61 / 46; kc6 17:45 BP 68 / 44; Pulse 64; Resp 19 S; Pulse Ox 100% on R/A; kc6 17:50 BP 78 / 47; Pulse 65; Resp 20 S; Pulse Ox 98% on R/A; kc6 18:00 BP 81 / 54; kc6 18:11 BP 89 / 51; Pulse 65; Resp 20 S; Pulse Ox 100% on R/A; kc6 18:31 BP 77 / 56; Pulse 65; Resp 18 S; Pulse Ox 100% on R/A; kc6 18:38 BP 86 / 56; Pulse 62; Resp 19 S; Pulse Ox 99% on R/A; kc6 20:04 BP 119 / 64; Pulse 99; Resp 20 S; Temp 97.8; Pulse Ox 99% on R/A; aa10 21:52 BP 109 / 59; Pulse 64; Resp 20 S; Temp 98; Pulse Ox 99% on R/A; aa10 16:39 Pain Scale: Adult kc6 Procedures: 19:15 Central Line: the site was prepped with Chlorhexidine, a triple lumen catheter was rt inserted, in the left internal jugular vein, in 1 attempts. placement was verified, by CXR, by blood return, the site was dressed with Chlorhexidine impregnated Tegaderm, the patient tolerated the procedure, well. MDM: 16:45 Medical Screening Exam initiated rt 19:24 Differential Diagnosis altered mental status, sepsis, flu. Data reviewed: vital signs, [facility] nurses notes, EMS record, lab test result(s), EKG, radiologic studies, CT scan, plain films. Consideration of Admission/Observation Escalation of care including admission/observation considered. I considered the following discharge prescriptions or medication management in the emergency department Medications were administered in the Emergency Department. See MAR. Independent interpretation of the following test(s) in the Emergency Department EKG: See my EKG interpretation above. Test considered but Not performed: Ultrasound no renal usg. Historians other than the Patient: EMS: ems well informed. Care significantly affected by the following chronic conditions: Diabetes, Hypertension, Congestive Heart Failure, Obesity, Cancer, Chronic Kidney Disease. Post IV fluid administration reassessment for Sepsis: Client prescribed 30 mL/kg IVF. Sepsis focused reassessment complete. Counseling: I had a detailed discussion with the patient and/or guardian regarding the historical points, exam findings, and any diagnostic results supporting the discharge/admit diagnosis, lab results, radiology results, the need to transfer to another facility, for higher level of care, [facility] does not immediately have the required specialist. 07/22 16:51 Order name: Blood Culture Adult (2) rt 07/22 16:51 Order name: CBC with Diff rt 07/22 16:51 Order name: CMP; Complete Time: 18:12 rt 07/22 16:51 Order name: Lactate w/ 2H reflex if indic.; Complete Time: 18:12 rt 07/22 16:51 Order name: Protime (+inr); Complete Time: 17:42 rt 07/22 16:51 Order name: Ptt, Activated; Complete Time: 17:42 rt 07/22 16:51 Order name: Urinalysis w/ reflexes; Complete Time: 19:23 rt 07/22 16:51 Order name: Troponin High Sensitivity; Complete Time: 18:12 rt 07/22 16:51 Order name: Type And Screen; Complete Time: 18:12 rt 07/22 17:51 Order name: Ghost Lactate-NO COLLECT Timer; Complete Time: 20:01 EDMS 07/22 16:51 Order name: Chest Single View XRAY; Complete Time: 17:42 rt 07/22 19:15 Order name: Chest Single View XRAY; Complete Time: 20:01 rt 07/22 20:03 Order name: CT Chest Abdomen Pelvis W/O Contrast [facility] 07/22 20:03 Order name: US Abdomen Limited [facility] 07/22 16:51 Order name: Accucheck; Complete Time: 16:53 rt 07/22 16:51 Order name: Cardiac monitoring; Complete Time: 16:53 rt 07/22 16:51 Order name: EKG - Nurse/Tech; Complete Time: 17:05 rt 07/22 16:51 Order name: IV Saline Lock - Large Bore; Complete Time: 16:53 rt 07/22 16:51 Order name: Labs collected and sent; Complete Time: 16:53 rt 07/22 16:51 Order name: O2 Per Protocol; Complete Time: 16:53 rt 07/22 16:51 Order name: O2 Sat Monitoring; Complete Time: 16:53 rt 07/22 16:51 Order name: Vital Signs; Complete Time: 16:53 rt EC:38 Rate is 62 beats/min. Rhythm is regular, Sinus bradycardia with No ectopy, Left bundle rt branch block. Left axis deviation noted. MI interval is normal. QRS interval is normal. QT interval is normal. No Q waves. Administered Medications: 17:08 Drug: NS 0.9% IV 1000 ml IV at 1000 ml once; to be given as a bolus over 60 minutes kc6 Route: IV; Rate: 1000 ml; Site: left antecubital; 17:45 Follow up: Response: No adverse reaction; Blood pressure is unchanged; IV Status: kc6 Completed infusion; IV Intake: 1000ml 17:34 Drug: Solu-CORTEF IVP 100 mg IVP once Route: IVP; Site: left antecubital; [facility] 18:19 Follow up: Response: No adverse reaction; Blood pressure is elevated [facility] 17:34 Drug: NS 0.9% IV 500 ml 500 ml IV at 1 bolus once; to be given as a bolus over 30 kc6 minutes Volume: 500 ml; Route: IV; Rate: 1 bolus; Site: left antecubital; 17:45 Follow up: Response: No adverse reaction; Blood pressure is unchanged; IV Status: kc6 Completed infusion; IV Intake: 500ml 17:38 Drug: Cefepime IVPB 2 grams IVPB at 200 ml/hr once over 30 mins; (mix in NS 100 mL) kc6 Route: IVPB; Rate: 200 ml/hr; Infused Over: 30 mins; Site: left antecubital; 18:18 Follow up: Response: No adverse reaction; IV Status: Completed infusion; IV Intake: kc6 100ml 17:50 Drug: NS 0.9% IV (30 ml/kg) 30 ml/kg IV at bolus once; Sepsis Protocol; to be given as kc6 a bolus over 90 minutes Route: IV; Rate: bolus; Site: left antecubital; 19:17 Follow up: Response: No adverse reaction; IV Status: Completed infusion; IV Intake: kc6 1500ml 18:31 Drug: vancoMYCIN IVPB 1 grams IVPB once over 2 hrs Route: IVPB; Infused Over: 2 hrs; kc6 Site: left antecubital; 20:11 Follow up: Response: No adverse reaction; Marked relief of symptoms aa10 19:56 Drug: Solu-CORTEF IVP 100 mg IVP once Route: IVP; Site: left forearm; br2 20:11 Follow up: Response: No adverse reaction; Marked relief of symptoms aa10 19:56 Drug: Pantoprazole IVP 40 mg IVP once Route: IVP; Site: left forearm; br2 20:10 Follow up: Response: No adverse reaction; Marked relief of symptoms aa10 21:13 Drug: levofloxacin IVPB 500 mg 100 ml IVPB once over 60 mins Volume: 100 ml; Route: br2 IVPB; Infused Over: 60 mins; Site: left antecubital; 21:50 Follow up: Response: No adverse reaction; Marked relief of symptoms aa10 21:51 Not Given (MAP within goal of over 65): norepinephrine0.1 mcg/kg/min IV at calculated aa10 rate Per protocol; (Standard concentration 4 mg / 250 mL D5W); Recommended max rate 3 mcg/kg/min; Titrate 0.05 mcg/kg/min as often as every 5 minutes to achieve goal (see titration policy); Goal parameter MAP greater than 65 mmHg. Disposition Summary: 07/22/24 18:11 Transfer Ordered Notes: Reason: Higher level of care rt Condition: Critical rt Problem: new rt Symptoms: have improved rt Transfer Location: [facility](07/22/24 20:27) louise Accepting Physician: Dr. NIXON(07/22/24 21:58) vc1 Diagnosis - Severe sepsis with septic shock rt - Addisonian crisis rt - Anemia, unspecified louise - Elevated white blood cell count louise - Acute kidney failure, unspecified louise - Obesity, unspecified louise - Acute cholecystitis louise Forms: - Medication Reconciliation Form rt - SBAR form rt Critical care time excluding procedures: 19:16 Critical care time: Bedside Care: 40 minutes. Total time: 40 minutes rt Signatures: Dispatcher [employer] EDMS Evan Akers MD MD cha Baxter, Heather RN TRAE hb Celia Spear RN RN vc1 Esther Borges RN RN kc6 Ozzy Denise MD MD rt Nida Goldberg, RN RN br2 Jessi Yepez RN RN aa10 Corrections: (The following items were deleted from the chart) 16:51 16:51 BLOOD CULTURE*+BA.LAB.BRZ ordered. EDMS EDMS 16:51 16:51 CBC+H.LAB.BRZ ordered. EDMS EDMS 16:51 16:51 COMPREHENSIVE METABOLIC PANEL+C.LAB.BRZ ordered. EDMS EDMS 16:51 16:51 LACTATE+C.LAB.BRZ ordered. EDMS EDMS 16:51 16:51 PROTIME (+INR)+COAG.LAB.BRZ ordered. EDMS EDMS 16:51 16:51 PTT, ACTIVATED+COAG.LAB.BRZ ordered. EDMS EDMS 16:51 16:51 Urinalysis+U.LAB.BRZ ordered. EDMS EDMS 16:51 16:51 Troponin High Sensitivity+C.LAB.BRZ ordered. EDMS EDMS 16:51 16:51 TYPE AND SCREEN+BB.LAB.BRZ ordered. EDMS EDMS 16:51 16:51 Chest Single View+RAD.RAD.BRZ ordered. EDMS EDMS 19:27 18:11 Dr. chiang louise 20:27 18:11 's Administration System rt louise 20:27 19:27 Dr. louise gil 20:27 20:27 Dr. louise gil 21:58 20:27 Dr. HUSSAIN gil vc1
[2024-07-22] MEDS ORDERED: VANCOMYCIN 1 GM/VIAL ONE (18:22)
[2024-07-22] MEDS ORDERED: NA CHLORIDE 0.9% 250 ML ONE (18:23)
[2024-07-22] MEDS ORDERED: NOREPINEPHRINE BITARTRATE/D5W 4 MG/250 ML KIT IV ONE (18:34)
[2024-07-22] MEDS ORDERED: PANTOPRAZOLE 40 MG INJ ONE (19:50)
--- NOTE | 2024-07-22 19:55 | RAD REPORT ---
Procedure: Chest Single View HISTORY: Central venous line placement FINDINGS: Tip of a central venous line lies within the proximal superior cava. No pneumothorax visualized
[2024-07-22] MEDS ORDERED: Levofloxacin500mg IV 500 MG/100 ML BAG IV ONE (20:59)
--- NOTE | 2024-07-22 21:31 | RAD REPORT ---
EXAM: CT CHEST, ABDOMEN AND PELVIS WITHOUT CONTRAST CLINICAL INDICATION: Chest and abdominal pain. Cough TECHNIQUE: CT chest, abdomen and pelvis was performed, without IV contrast, as per department protoco l. Axial, sagittal and coronal reconstructions were obtained. One or more of the following dose reduction techniques were used: Automated exposure control, adjustment of the mA and/or kV according to the patient size, and/or iterative reconstruction. Unless otherwise specified, incidental findings do not require dedicated imaging follow-up. The lack of IV and oral contrast limits evaluation of the mediastinum, rolly, vessels, organs and wyatt l. COMPARISON: July 2023 CT FINDINGS: Mild chronic appearing lung opacities bilaterally. Marked cardiomegaly. Aortic valve replacement.. No mediastinal or hilar lymphadenopathy seen. No pleural effusion. No pericardial effusion. Artifact from the patient's arms being down by his side evaluation of the liver and spleen. No gross abnormality noted. Cholelithiasis. Mild gallbladder wall thickening.. Second portion of the duodenal wall is thickened Right nephrectomy. Left kidney adrenal glands grossly normal. Right hemicolectomy. There is stranding within the right mesentery and omentum abdomen. Small to moderate inguinal hernias containing fat There is no evidence of diverticulitis Spondylosis lumbar spine results in spinal stenosis. Atherosclerosis is present. IMPRESSION: Cholelithiasis. Thickened gallbladder wall may indicate cholecystitis. Thickening of the wall of the second portion of the duodenum could be secondary to duodenal inflammat ion or secondary inflammation related to the gallbladder. Stranding within the right mesentery and right aspect of the omentum in the abdomen could be related to gallbladder, duodenal or small bowel inflammation..
--- NOTE | 2024-07-22 21:31 | RAD REPORT ---
EXAM: Right upper quadrant ultrasound. CLINICAL HISTORY: Abdominal pain COMPARISON: 2019 FINDINGS: Limited examination secondary to body habitus. Several gallstones are present. Gallbladder wall 6 mm. Common bile duct upper limits normal thickness. IMPRESSION: Cholelithiasis Thickened gallbladder wall may be secondary to cholecystitis or hypoalbuminemia
[2024-07-22 22:19] LABS: Anisocytosis 1+; Band Neutrophils 34 % (0-1); Blood Morphology Comment NOTED (NOT SEEN); Differential Total Cells Count 100; Lymphocytes 6 % (15-42); Monocytes 3 % (0-10); Platelet Estimate DECR; Poikilocytosis 2+; Polychromasia SLIGHT; Segmented Neutrophils 57 % (40-80)
[2024-07-22 22:20] LABS: Burr Cells 1+; Ovalocytes 1+
--- NOTE | 2024-07-24 11:55 | EKG ---
Test Date: 2024-07-22 Test Time: 16:57:01 [employer] Estate Asset Manager: CAMILO MEASUREMENT RESULTS: Intervals: Rate: 62 ND: QRSD: 150 QT: 464 QTc: 470 Uneeda: P: ND: QRS: -42 T: 231 INTERPRETIVE STATEMENTS: Paced rhythm Left axis deviation Left bundle branch block Abnormal ECG Compared to ECG 05/13/2024 19:11:35 Atrial fibrillation no longer present Ventricular premature complex(es) no longer present Ventricular-paced complex(es) or rhythm no longer present Electronically Signed On 07-24-24 11:54:50 MANAGER INVESTMENT by Johnathan Clark
[2024-07-25 01:44] VITALS: BP 109/59; TEMP 98; O2SAT 99
== END 2024-07-22 21:58 | disposition short-term general hospital (02) ==
LOC: ER 16:15
DX: E27.2 Addisonian crisis (principal); R65.21 Severe sepsis with septic shock; N17.9 Acute kidney failure, unspecified; K81.0 Acute cholecystitis; D64.9 Anemia, unspecified; D72.829 Elevated white blood cell count, unspecified; E66.9 Obesity, unspecified; E11.9 Type 2 diabetes mellitus without complications; I10 Essential (primary) hypertension; Z79.82 Long term (current) use of aspirin
CPT/HCPCS: 93005; 87040 ×2; 85025; 36415; 86900; 86850; 87205 ×4; 85610; 86901; 83605; 85730; 87077 ×2; 87186 ×2; 81003; 84484; 80053; 71250; 74176; 71045 ×2; 76705; 99291; 99292; 36556; J2470; J0692; J1720 ×2; J7050; J7040 ×2; J7030